=== PATIENT | female | born 1935 | race Caucasian/White ===

== ENCOUNTER 2017-10-15 13:41 | Inpatient (IN) ==
--- NOTE | 2017-10-15 14:43 | XRay Report ---
INDICATION: Dyspnea. Weakness, fever, bilateral leg swelling TECHNIQUE: PA and lateral upright chest x-ray COMPARISON: 10/05/2017, 10/01/2017, 01/22/2017 FINDINGS: Previous median sternotomy. There is mild cardiomegaly, unchanged. Pulmonary vascularity is prominent in the upper lobes consistent with mild pulmonary congestion. No evidence for pulmonary edema. No focal pulmonary parenchymal consolidation. No parenchymal mass. No pleural fluid. No acute abnormality or significant interval change IMPRESSION: 1. Mild cardiomegaly and pulmonary congestion 2. Pulmonary edema. No focal parenchymal infiltrate. 3. No interval change since 10/05/2017 Interpreted and Authenticated by: Ross Wu 10/15/17
--- NOTE | 2017-10-15 14:51 | Emergency Department Note ---
General Adult HPI - General Chief complaint: Fever Stated complaint: Fever, weakness, neck pain Time Seen by Provider: 10/15/17 14:20 Source: patient Mode of arrival: ambulatory Limitations: no limitations - History of Present Illness HPI Narrative: 82-year-old female presents with multiple complaints. She is describing body aches all over including her head, neck, shoulders, legs, and her intermittent achy type feelings. She also has had a fever of 102. Onset a couple of days ago. Positive nausea and diarrhea for the last couple of days. No vomiting. States she was discharged from the hospital about a week ago for acute renal failure. States she did better for couple days and her home health nurse noticed that her vital signs were abnormal today and she is little bit short of breath so they wanted her to be evaluated in the ER. Denies abdominal pain or back pain. No dysuria or frequency. She did have a recent UTI. Associated symptoms: Reports: cough, fever/chills, headaches, loss of appetite, malaise, nausea/vomiting. Denies: confusion, chest pain, diaphoresis, rash, syncope, weakness - Related Data Previous Rx's Medication Instructions Recorded Cephalexin [Keflex] 500 mg PO QID #40 cap 10/07/17 Cholestyramine/Aspartame [Questran 4 gm PO BID@0700,1999 #60 powd.pack 10/07/17 Light] Allergies Allergy/AdvReac Type Severity Reaction Status Date / Time Amoxicillin Allergy Severe Anaphylaxis Verified 10/15/17 13:46 nitrofurantoin Allergy Severe Anaphylaxis Verified 10/15/17 13:46 iodine Allergy Intermediate Rash Verified 10/15/17 13:46 butalbital [From Fioricet] Allergy Unknown Rash Verified 10/15/17 13:46 caffeine [From Fioricet] Allergy Unknown Rash Verified 10/15/17 13:46 amitriptyline AdvReac Mild Bad Verified 10/15/17 13:46 dreams/ space out sertraline [From Zoloft] AdvReac Mild Nightmare Verified 10/15/17 13:46 Review of Systems All systems ED: reviewed and negative except as stated. Past Medical History - Past Medical History [facility] Narrative: Medical History (Last Reviewed 04/30/17 @ 12:54 by Ross Sargent DO) Systolic congestive heart failure (Chronic) Multiple falls (Chronic) Acute bronchitis (Chronic) Cough (Chronic) Peripheral neuropathy (Chronic) Anemia, unspecified (Chronic) Lupus erythematosus (Chronic) Allergic conjunctivitis (Chronic) Syncope and collapse (Chronic) Encounter for long-term (current) use of other medications (Chronic) Primary open angle glaucoma (Chronic) Pre-excitation syndrome (Chronic) Irritable bowel syndrome (Chronic) Unspecified contact dermatitis, unspecified cause (Chronic) Unspecified osteoarthritis, unspecified site (Chronic) Polyneuropathy (Chronic) 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) Gastro-esophageal reflux disease without esophagitis (Chronic) Epigastric pain (Chronic) Cardiomegaly (Chronic) Frequency of micturition (Chronic) Abnormal weight loss (Chronic) Hyperlipidemia (Chronic) Renal osteodystrophy (Chronic) Vitamin D deficiency (Chronic) Anemia in chronic kidney disease (Chronic) Hypertension, essential (Chronic) Major depressive disorder, single episode (Chronic) Anxiety state (Chronic) Diarrhea (Chronic) Chronic kidney disease, stage 3 (Chronic) Kidney problem (Chronic) History of tobacco use (Chronic) Neuropathy (Chronic) Restless leg (Chronic) Fibromyalgia (Chronic) Renal failure (Chronic) Migraines (Chronic) Lupus (Chronic) Joint pain (Chronic) Insomnia (Chronic) WPW (Kaeus-Smonelssm-Cdvwu syndrome) (Chronic) Gallbladder problem (Chronic) Daytime sleepiness (Chronic) Muscle pain (Chronic) Skin cancer (Chronic) Arthritis (Chronic) Anxiety (Chronic) Acid reflux (Chronic) Past Surgical History (Last Reviewed 04/30/17 @ 12:54 by Ross Sargent DO) H/O colonoscopy (Chronic) History of cholecystectomy (Chronic) History of herniorrhaphy (Chronic) History of partial hysterectomy (Chronic) History of right knee joint replacement (Chronic) Hx of appendectomy (Chronic) S/P complete hysterectomy (Chronic) - Social History smoking status: Never smoker Alcohol use: Reports: None Drug use: Reports: none Physical Exam Limitations: no limitations General appearance: alert, in no apparent distress Head: atraumatic, normocephalic, normal inspection Eye: Present: normal appearance. Absent: conjunctival injection ENT: normal exam, normal oropharynx, mucous membranes moist, TM's normal bilaterally, normal external ear exam Neck: Present: normal inspection, trachea midline. Absent: tenderness, lymphadenopathy Chest: Present: normal inspection, symmetric chest wall rise Respiratory: Present: normal lung sounds bilaterally. Absent: respiratory distress, wheezes, accessory muscle use Cardiovascular: Present: regular rate, normal heart sounds Abdominal: Present: soft, normal bowel sounds. Absent: tenderness, mass Extremities: Present: normal inspection, normal capillary refill, pedal edema (1 + bialt). Absent: tenderness Neurological: Present: alert, oriented X3 Psychiatric: Present: normal affect, normal mood Skin: Present: warm, dry, intact, normal color Course Vital Signs Temperature 99.4 F H 10/15/17 13:41 Pulse Rate 80 10/15/17 13:41 Respiratory Rate 28 H 10/15/17 13:41 Blood Pressure 169/73 10/15/17 13:41 Pulse Oximetry (%) 99 10/15/17 13:41 Temperature 101.3 F H 10/15/17 16:49 Pulse Rate 80 10/15/17 16:49 Respiratory Rate 28 H 10/15/17 13:41 Blood Pressure 192/124 10/15/17 17:16 Pulse Oximetry (%) 100 10/15/17 16:49 Medical Decision Making - Lab Data Lab results reviewed: Yes I reviewed the patient's lab results. Result diagrams: 10/15/17 14:20 10/15/17 14:20 Lab Results 10/15/17 10/15/17 10/15/17 Range/Units 14:20 14:20 14:28 WBC 7.6 (4.5-11.0) K/mcL RBC 3.63 L (4.00-5.20) M/mcL Hgb 10.5 L (12.0-15.0) g/dL Hct 31.5 L (36.0-48.0) % POC Hct 31.0 L (36.0-48.0) % MCV 86.7 (80.0-100.0) fL MCH 29.0 (26.0-34.0) pg MCHC 33.4 (31.0-36.0) g/dL RDW 16.4 H (11.5-14.5) % Plt Count 277 (140-440) K/mcL MPV 8.5 (7.4-10.4) fL Gran % 65.7 (38.0-78.0) % Lymph % (Auto) 16.6 (15.5-49.0) % [place] % (Auto) 15.0 H (1.0-12.0) % Eos % (Auto) 2.4 (0.0-7.0) % Baso % (Auto) 0.3 (0.0-2.0) % Gran # 5.0 (1.8-8.0) K/mcL Lymph # (Auto) 1.3 L (1.5-4.8) K/mcL [place] # (Auto) 1.1 H (0.1-0.9) K/mcL Eos # (Auto) 0.2 (0.0-0.7) K/mcL Baso # (Auto) 0 (0.0-0.3) K/mcL POC Sodium 140 (133-145) mmol/L Sodium 137 (133-145) mmol/L POC Potassium 3.6 (3.3-5.1) mmol/L Potassium 3.7 (3.3-5.1) mmol/L POC Chloride 103 (96-108) mmol/L Chloride 101 (96-108) mmol/L Carbon Dioxide 23 (22-30) mmol/L POC Total CO2 23 (22-30) mmol/L Anion Gap 13.0 (8-16) POC BUN 9 (8-23) mg/dl BUN 9 (8-23) mg/dl Creatinine 1.1 (0.6-1.1) mg/dl POC Creatinine 1.1 (0.6-1.1) mg/dl GFR Calculation 47 Glucose 120 H (70-105) mg/dL POC Glucose 120 H (70-105) mg/dL Calcium 8.4 L (8.6-10.4) mg/dl POC WB Ioniz Calcium 1.17 (1.16-1.32) mmol/L Total Bilirubin 0.3 (0.0-1.0) mg/dL AST 21 (0-37) U/l ALT 12 (0-40) U/l Alkaline Phosphatase 109 (39-117) U/L NT-Pro-B Natriuret Pep 4524.0 H (0-450) pg/ml Total Protein 6.3 (5.9-8.4) gm/dL Albumin 3.2 (3.2-5.2) gm/dL Globulin 3.1 (2.2-3.7) gm/dL Albumin/Globulin Ratio 1.0 (1.0-2.3) Urine Color Yellow Urine Appearance Hazy Urine pH 5.0 (5.0-9.0) Ur Specific [place] 1.013 (1.000-1.035) Urine Protein 30 A (NEG) mg/dL Urine Glucose (UA) Negative (NEG) mg/dL Urine Ketones Neg (NEG) mg/dL Urine Occult Blood 0.03 A (<0.03) mg/dL Urine Nitrate Neg (NEG) Urine Bilirubin Neg (NEG) mg/dL Urine Urobilinogen Neg (NEG) mg/dL Ur Leukocyte Esterase 75 A (NEG) /uL Urine RBC 2 H (0-1) /hpf Urine WBC 15 H (0-4) /hpf Ur Squamous Epith Cells 8 H (0-4) /hpf Urine Bacteria Few A (0) /hpf Hyaline Casts 1 (0-2) /lpf Urine Mucus Few (0) /hpf Ur Culture Indicated? No - Radiology Data Radiology results reviewed: Yes I reviewed the patient's radiology results. Disposition Pt seen by RESTRICTIVE PREPARATION OPERATOR/PA only: Yes Clinical Impression: Urinary tract infection, Fever, Pulmonary congestion Disposition: Xfer As Inpt ([facility]) Condition: Fair Referrals: Ross Sargent DO [Primary Care Provider] -
[2017-10-15 14:54] LABS: Basophils # (Auto) 0 K/mcL (0.0-0.3); Basophils % (Auto) 0.3 % (0.0-2.0); Eosinophils # (Auto) 0.2 K/mcL (0.0-0.7); Eosinophils % (Auto) 2.4 % (0.0-7.0); Granulocytes % (Auto) 65.7 % (38.0-78.0); Lymphocytes # (Auto) 1.3 K/mcL (1.5-4.8); Lymphocytes % (Auto) 16.6 % (15.5-49.0); Mean Cell Volume 86.7 fL (80.0-100.0); Mean Corpuscular HGB Conc 33.4 g/dL (31.0-36.0); Monocytes # (Auto) 1.1 K/mcL (0.1-0.9); Platelet Count 277 K/mcL (140-440); RBC 3.63 M/mcL (4.00-5.20); Red Cell Distribution Width 16.4 % (11.5-14.5)
[2017-10-15 15:13] LABS: ALT/SGPT 12 U/l (0-40); Albumin 3.2 gm/dL (3.2-5.2); Alkaline Phosphatase 109 U/L (39-117); Blood Urea Nitrogen 9 mg/dl (8-23)
[2017-10-15 15:27] LABS: Appearance,Urine HAZY; Bacteria,Urine FEW /hpf (0); Bilirubin,Urine NEG (NEG); Color,Urine YELLOW; Glucose,Urine (UA) NEGATIVE (NEG); Leukocyte Esterase,Urine 75 /uL (NEG); Mucus,Urine FEW /hpf (0); Protein,Urine 30 mg/dL (NEG); Specific Gravity,Urine 1.013 (1.000-1.035); Urine Blood 0.03 mg/dL (<0.03); Urine Hyaline Cast 1 /lpf (0-2); Urine RBC 2 /hpf (0-1); Urine Squamous Epithelial Cell 8 /hpf (0-4); Urine WBC 15 /hpf (0-4); Urobilinogen,Urine NEG (NEG)
[2017-10-15] MEDS ORDERED: ACETAMINOPHEN 325 MG TABLET PO ONE (16:26)
[2017-10-15] MEDS ORDERED: CIPROFLOXACIN 400 MG/200 ML BAG IV ONE (16:52)
--- NOTE | 2017-10-15 19:20 | Cat Scan Report ---
CLINICAL INFORMATION: Fever. Nausea and vomiting. Abdominal pain. COMPARISON: CT scan dated 09/24/2017 TECHNIQUE: Axial images were obtained through the abdomen and pelvis. Sagittally and coronally reformatted images. FINDINGS: Small left pleural effusion is new since previous examination. Lung bases are otherwise negative. No pericardial effusion. There is a small hiatal hernia. Previous examination demonstrated perinephric stranding. This is almost completely resolved. There is no hydronephrosis. No detectable mass on this noncontrast enhanced examination. No renal calculi. No hydroureter. No bladder stone. Liver is negative to the limits of noncontrast enhanced examination. Liver contour is smooth. There are surgical clips in the gallbladder fossa. No dilated bile ducts No splenomegaly. Pancreas is negative. No peripancreatic abnormality. Adrenal glands are prominent without discrete nodule. Uterus is not identified. No adnexal mass. There is an anastomotic suture line and a calcified mural abnormality within the rectum. A cyst is unchanged. There is sigmoid diverticulosis. No evidence for diverticulitis. No detectable colonic mass. No appendicitis. Is mild retroperitoneal adenopathy. There are multiple small lymph nodes. These are not enlarged but are more numerous than typical largest para-aortic node measures approximately 1.6 cm. This is to the left of the aorta. Overall appearance is unchanged. No mesenteric adenopathy. No lumbar compression fracture. Sacrum and pelvis are negative. No intra-abdominal abscess. No pneumoperitoneum. No biliary or portal venous gas. No pneumatosis. IMPRESSION: 1. Previously described perinephric stranding is no longer present. There is no hydronephrosis. No hydroureter. No renal calculi. 2. Mild para-aortic adenopathy, unchanged. 3. No intra-abdominal abscess. 4. Small left pleural effusion is new since 09/24/2017. 5. Small hiatal hernia. The exam was performed using radiation dose optimization techniques including, but not limited to, automated exposure control, adjustment of the mA and/or kV according to patient size and use of iterative reconstruction technique. Interpreted and Authenticated by: Ross Wu 10/15/17
--- NOTE | 2017-10-15 19:25 | Internal Med History&Physical ---
Medical - H&P: [facility] Patient information: Note initiated : 10/15/17 at 7:21 pm Service Date, if different from initiated Date: [] Patient: Maxi Encarnacion a 82 y/o F admitted on for Fever, weakness, neck pain. Chief Complaint: [] History of present illness: Ms. Encarnacion is a 82 year old F Who was discharged from the hospital little over week ago for acute renal failure, UTI, sepsis, microscopic colitis. She presents back today for fever, she has had some body aches, diarrhea which was worse last Sunday but that has improved some. She has no crampy abdominal pain with bloating she has chronic shortness of breath and coughing. In the ER she was noted to have a fever of 102 denies any dysuria no productive cough. There was some report of some shortness of breath but when speaking with her she states this is chronic although an ER BNP was elevated above normal. Chest x-ray some of the past with pulmonary congestion Review of systems: Review of Systems: Complains of body aches fever chills diarrhea weakness crampy abdominal pain. denies headache/vomiting/chest pain, has chronic cough and dyspnea. Medical - H&P: [facility] Medical history: Medical History (Last Reviewed 04/30/17 @ 12:54 by Ross Sargent DO) Systolic congestive heart failure (Chronic) Multiple falls (Chronic) Acute bronchitis (Chronic) Cough (Chronic) Peripheral neuropathy (Chronic) Anemia, unspecified (Chronic) Lupus erythematosus (Chronic) Allergic conjunctivitis (Chronic) Syncope and collapse (Chronic) Encounter for long-term (current) use of other medications (Chronic) Primary open angle glaucoma (Chronic) Pre-excitation syndrome (Chronic) Irritable bowel syndrome (Chronic) Unspecified contact dermatitis, unspecified cause (Chronic) Unspecified osteoarthritis, unspecified site (Chronic) Polyneuropathy (Chronic) 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) Gastro-esophageal reflux disease without esophagitis (Chronic) Epigastric pain (Chronic) Cardiomegaly (Chronic) Frequency of micturition (Chronic) Abnormal weight loss (Chronic) Hyperlipidemia (Chronic) Renal osteodystrophy (Chronic) Vitamin D deficiency (Chronic) Anemia in chronic kidney disease (Chronic) Hypertension, essential (Chronic) Major depressive disorder, single episode (Chronic) Anxiety state (Chronic) Diarrhea (Chronic) Chronic kidney disease, stage 3 (Chronic) Kidney problem (Chronic) History of tobacco use (Chronic) Neuropathy (Chronic) Restless leg (Chronic) Fibromyalgia (Chronic) Renal failure (Chronic) Migraines (Chronic) Lupus (Chronic) Joint pain (Chronic) Insomnia (Chronic) WPW (Zwoon-Oknllrguq-Okigv syndrome) (Chronic) Gallbladder problem (Chronic) Daytime sleepiness (Chronic) Muscle pain (Chronic) Skin cancer (Chronic) Arthritis (Chronic) Anxiety (Chronic) Acid reflux (Chronic) Past Surgical History (Last Reviewed 04/30/17 @ 12:54 by Ross Sargent DO) H/O colonoscopy (Chronic) History of cholecystectomy (Chronic) History of herniorrhaphy (Chronic) History of partial hysterectomy (Chronic) History of right knee joint replacement (Chronic) Hx of appendectomy (Chronic) S/P complete hysterectomy (Chronic) Family History (Last Reviewed 04/30/17 @ 12:54 by Ross Sargent DO) Mother Arthritis Uterine cancer Dementia Father Arthritis Grandmother Arthritis Grandmother Arthritis Cancer Sister Lymphoma Migraine Grandfather Heart attack Stroke Social History (Last Updated 09/04/17 @ 11:17 by Ross Sargent DO) Patient denies alcohol or tobacco and uses a cane lives with her Functional capacity: uses cane/walker Medical - H&P: Meds Home Medications Medication Instructions Recorded Confirmed Type Cephalexin [Keflex] 500 mg PO QID #40 cap 10/07/17 10/15/17 Rx Cholestyramine/Aspartame [Questran 4 gm PO BID@0700,1999 #60 powd.pack 10/07/17 10/15/17 Rx Light] Allergies Allergy/AdvReac Type Severity Reaction Status Date / Time Amoxicillin Allergy Severe Anaphylaxis Verified 10/15/17 13:46 nitrofurantoin Allergy Severe Anaphylaxis Verified 10/15/17 13:46 iodine Allergy Intermediate Rash Verified 10/15/17 13:46 butalbital [From Fioricet] Allergy Unknown Rash Verified 10/15/17 13:46 caffeine [From Fioricet] Allergy Unknown Rash Verified 10/15/17 13:46 amitriptyline AdvReac Mild Bad Verified 10/15/17 13:46 dreams/ space out sertraline [From Zoloft] AdvReac Mild Nightmare Verified 10/15/17 13:46 Medical - H&P: Exam - Constitutional Vitals: Temp Pulse Resp BP Pulse Ox 99.7 F H 80 28 H 137/123 100 10/15/17 18:12 10/15/17 16:49 10/15/17 13:41 10/15/17 18:02 10/15/17 16:49 Exam: General: Alert, Awake, No acute Distress HEENT: Normocephalic atraumatic, EOMI, mild JVD CV: RRR, No murmurs, normal s1/s2 Pulm: Clear b/l, no wheezing/rhonchi/rales Abd: soft, nontender, +BS x4 Ext: no clubbing/cyanosis, 1+ bilateral lower extremity edema Neuro: Alert, no focal deficits, moves all extremities Skin: warm/dry Medical - H&P: Reslt - Labs CBC & Chem 7: 10/15/17 14:20 10/15/17 14:20 Labs: Short CBC 10/15/17 Range/Units 14:20 WBC 7.6 (4.5-11.0) K/mcL Hgb 10.5 L (12.0-15.0) g/dL Hct 31.5 L (36.0-48.0) % Plt Count 277 (140-440) K/mcL BMP 10/15/17 14:20 Sodium 137 Potassium 3.7 Chloride 101 Carbon Dioxide 23 BUN 9 Creatinine 1.1 Glucose 120 H Calcium 8.4 L Liver Function 10/15/17 Range/Units 14:20 Total Bilirubin 0.3 (0.0-1.0) mg/dL AST 21 (0-37) U/l ALT 12 (0-40) U/l Alkaline Phosphatase 109 (39-117) U/L Albumin 3.2 (3.2-5.2) gm/dL Urine 10/15/17 Range/Units 14:28 Urine Color Yellow Urine Appearance Hazy Urine pH 5.0 (5.0-9.0) Ur Specific [place] 1.013 (1.000-1.035) Urine Protein 30 A (NEG) mg/dL Urine Glucose (UA) Negative (NEG) mg/dL Medical - H&P: A/P - Narrative A/P Narrative: A: *UTI: *Sepsis: Secondary above *Mild decompensated diastolic heart failure, acute on chronic *Diarrhea for microscopic colitis *Peripheral neuropathy *Depression *Fibromyalgia/lupus *Hypertension *GERD *CKD stage III: Follows with Dr. Matos *Chronic anemia P: -IV Levaquin -Pending blood and urine cultures -Monitor I's and O's and daily weights -IV Lasix tonight -Imodium -Continue home medications but hold cholestyramine at this time -Stool studies including C. difficile pending -ppx: Heparin
[2017-10-15 19:27] LABS: Eosinophils % (Manual) 2 % (0-7); Lymphocytes % 18 % (15-49); Monocytes % (Manual) 14 % (1-12); Platelet Estimate NORMAL (NORMAL); RBC Morphology NORMAL (NORMAL); Segmented Neutrophils % 66 % (38-78)
[2017-10-15] MEDS ORDERED: ACETAMINOPHEN 325 MG TABLET PO PRN (21:05)
[2017-10-15] MEDS ORDERED: FUROSEMIDE 40 MG/4 ML VIAL IV ONE (21:05)
[2017-10-15] MEDS ORDERED: ENALAPRILAT 1.25 MG/ML VIAL IV PRN (21:05)
[2017-10-15] MEDS ORDERED: LOPERAMIDE 2 MG CAPSULE PO PRN (21:05)
[2017-10-15] MEDS ORDERED: LEVOFLOXACIN 500 MG/100 ML BAG IV SCH (21:05)
[2017-10-15] MEDS ORDERED: LABETALOL 5 MG/ML ML IV PRN (22:23)
[2017-10-15] MEDS: HEPARIN 5,000 UNIT/ML VIAL SQ SCH (22:50)
[2017-10-15] MEDS: 0.9 % SODIUM CHLORIDE 10 ML SYRINGE IV SCH (22:52)
[2017-10-16 05:17] LABS: Mean Cell Volume 86.9 fL (80.0-100.0); Mean Corpuscular Hemoglobin 28.7 pg (26.0-34.0); Platelet Count 271 K/mcL (140-440); RBC 3.83 M/mcL (4.00-5.20); Red Cell Distribution Width 16.3 % (11.5-14.5)
[2017-10-16 05:48] LABS: ALT/SGPT 13 U/l (0-40); Albumin 3.3 gm/dL (3.2-5.2); Albumin/Globulin Ratio 0.9 (1.0-2.3); Alkaline Phosphatase 121 U/L (39-117); Bilirubin,Direct < 0.2 mg/dL (0.0-0.3); Blood Urea Nitrogen 12 mg/dl (8-23); Gamma Glutamyl Transpeptidase 44 U/L (5-36); Uric Acid 4.4 mg/dL (2.5-8.0)
[2017-10-16] MEDS: 0.9 % SODIUM CHLORIDE 10 ML SYRINGE IV SCH ×3 (05:52→20:16)
[2017-10-16 06:41] LABS: Anisocytosis 1+ (NONE SEEN); Band Neutrophils % 1 % (0-10); Basophils % (Manual) 2 % (0-2); Lymphocytes % 28 % (15-49); Monocytes % (Manual) 13 % (1-12); Platelet Estimate NORMAL (NORMAL); RBC Morphology ABNORM (NORMAL); Segmented Neutrophils % 56 % (38-78)
--- NOTE | 2017-10-16 07:24 | Internal Med Progress Note ---
Medical - PN: Subj Patient information: Note initiated : 10/16/17 at 7:19 am Service Date, if different from initiated Date: [] Patient: Maxi Encarnacion a 82 y/o F admitted on 10/15/17 for Fever, weakness, neck pain. Chief Complaint: [] Interval history: Ms. Encarnacion is a 82 year old F Who was discharged from the hospital little over week ago for acute renal failure, UTI, sepsis, microscopic colitis. She presents back today for fever, she has had some body aches, diarrhea which was worse last Sunday but that has improved some. She has no crampy abdominal pain with bloating she has chronic shortness of breath and coughing. In the ER she was noted to have a fever of 102 denies any dysuria no productive cough. There was some report of some shortness of breath but when speaking with her she states this is chronic although an ER BNP was elevated above normal. Chest x-ray some pulmonary congestion 10/16 feeling better overnight. No fevers this morning. No episodes of diarrhea since admission. Had mild headache but has improved. No nausea vomiting abdominal pain. No coughing or shortness of breath. Denies chest pain. - Constitutional Vitals: Vital Signs Temp Pulse Resp BP Pulse Ox 98.5 F 89 20 152/66 96 10/16/17 05:18 10/16/17 03:54 10/16/17 03:54 10/16/17 03:54 10/16/17 03:54 Period Temp Pulse Resp BP Sys/Chicas Pulse Ox Last 24 Hr 98.3 F-102.3 F 56-89 20-28 126-192/62-124 96-100 Intake and Output 10/15/17 10/16/17 10/16/17 21:59 05:59 13:59 Intake Total 200 / 200 250 / 250 Output Total 150 / 150 Balance 50 / 50 250 / 250 Weight 78.789 kg Intake & Output: Intake & Output 10/15/17 10/16/17 10/16/17 21:59 05:59 13:59 Intake Total 200 / 200 250 / 250 Output Total 150 / 150 Balance 50 / 50 250 / 250 Weight 78.789 kg Intake: IV 200 / 200 100 / 100 Oral 150 / 150 Output: Void Amount 150 / 150 Other: Urine Appearance Clear Urine Color Pale Urine Odor Strong Exam: General: Alert, Awake, No acute Distress HEENT: Normocephalic atraumatic, EOMI, mild jvd CV: RRR, No murmurs, normal s1/s2 Pulm: Clear b/l, no wheezing/rhonchi/rales Abd: soft, nontender, +BS x4 Ext: no clubbing/cyanosis, 1+ bilateral lower extremity edema Neuro: Alert, no focal deficits, moves all extremities Skin: warm/dry Medical - PN: Obj Da - Labs CBC & Chem 7: 10/16/17 04:09 10/16/17 04:09 Labs: Abnormal Lab Results 10/16/17 10/16/17 10/15/17 04:09 04:09 17:42 RBC 3.83 L Hgb 11.0 L Hct 33.3 L POC Hct RDW 16.3 H [place] % (Auto) Lymph # (Auto) [place] # (Auto) Monocytes % (Manual) 13 H 14 H RBC Morphology Abnorm A Anisocytosis 1+ A RBC Fragments Rare A Creatinine 1.3 H Glucose POC Glucose Calcium Phosphorus 2.5 L GGT 44 H Alkaline Phosphatase 121 H Lactate Dehydrogenase 286 H NT-Pro-B Natriuret Pep Albumin/Globulin Ratio 0.9 L Urine Protein Urine Occult Blood Ur Leukocyte Esterase Urine RBC Urine WBC Ur Squamous Epith Cells Urine Bacteria 10/15/17 10/15/17 10/15/17 14:28 14:20 14:20 RBC 3.63 L Hgb 10.5 L Hct 31.5 L POC Hct 31.0 L RDW 16.4 H [place] % (Auto) 15.0 H Lymph # (Auto) 1.3 L [place] # (Auto) 1.1 H Monocytes % (Manual) RBC Morphology Anisocytosis RBC Fragments Creatinine Glucose 120 H POC Glucose 120 H Calcium 8.4 L Phosphorus GGT Alkaline Phosphatase Lactate Dehydrogenase NT-Pro-B Natriuret Pep 4524.0 H Albumin/Globulin Ratio Urine Protein 30 A Urine Occult Blood 0.03 A Ur Leukocyte Esterase 75 A Urine RBC 2 H Urine WBC 15 H Ur Squamous Epith Cells 8 H Urine Bacteria Few A Meds: Medications Acetaminophen (Tylenol) 650 mg PO Q6HP PRN PRN Reason: PAIN/FEVER > 101 Last Admin: 10/16/17 04:33 Dose: 650 mg Enalaprilat (Vasotec) 1.25 mg IV Q4HP PRN PRN Reason: Hypertension Heparin Sodium (Porcine) (Heparin) 5,000 unit SQ Q12 PENDING SALE TO [facility] Last Admin: 10/15/17 22:50 Dose: 5,000 unit Levofloxacin (Levaquin) 500 mg in 100 mls @ 100 mls/hr IV Q24H PENDING SALE TO [facility] Last Infusion: 10/16/17 00:11 Dose: Infused Labetalol HCl (Trandate) 10 mg IV Q2HP PRN PRN Reason: sbp>150 Loperamide HCl (Imodium) 2 mg PO PRN PRN PRN Reason: Diarrhea Sodium Chloride (Saline Flush) 10 ml IV Q8 PENDING SALE TO [facility] Last Admin: 10/16/17 05:52 Dose: 10 ml Medical - PN: A/P - Time Spent With Patient Total time spent is greater than 50% in coordination of care (as documented) at patient's floor/unit and/or counseling patient: - Narrative A/P Narrative: A: *UTI: *Sepsis: Secondary above -fever improving *Mild decompensated diastolic heart failure, acute on chronic *Diarrhea from microscopic colitis *Peripheral neuropathy *Depression *Fibromyalgia/lupus *Hypertension *GERD *CKD stage III: Follows with Dr. Matos *Chronic anemia P: -IV Levaquin -Pending blood and urine cultures -Monitor I's and O's and daily weights -s/p IV Lasix, cont lasix -Imodium -Continue home medications but hold cholestyramine at this time -Stool studies including C. difficile pending -f/u with GI outpt, has appt -ppx: Heparin Medical - PN: Qual - VTE Deep Vein Thrombosis/Pulmonary Embolism Present on Admission: No
[2017-10-16] MEDS: HEPARIN 5,000 UNIT/ML VIAL SQ SCH ×2 (08:11→20:16)
[2017-10-16] MEDS ORDERED: BENZOCAINE/MENTHOL 1 LOZENGE PO PRN ×2 (09:18→14:11)
[2017-10-16] MEDS ORDERED: FUROSEMIDE 20 MG/2 ML VIAL IV ONE (09:19)
[2017-10-16] MEDS ORDERED: ACETAMINOPHEN 325 MG TABLET PO PRN (14:11)
[2017-10-16] MEDS ORDERED: LOPERAMIDE 2 MG CAPSULE PO PRN (14:11)
[2017-10-16] MEDS ORDERED: LABETALOL 5 MG/ML ML IV PRN (14:11)
[2017-10-16] MEDS ORDERED: ENALAPRILAT 1.25 MG/ML VIAL IV PRN ×2 (14:11→14:49)
[2017-10-16] MEDS ORDERED: LEVOFLOXACIN 500 MG/100 ML BAG IV SCH (15:00)
[2017-10-17 05:53] LABS: Blood Urea Nitrogen 12 mg/dl (8-23)
[2017-10-17] MEDS: 0.9 % SODIUM CHLORIDE 10 ML SYRINGE IV SCH (05:57)
--- NOTE | 2017-10-17 07:32 | Internal Med Progress Note ---
Medical - PN: Subj Patient information: Note initiated : 10/17/17 at 7:24 am Service Date, if different from initiated Date: [] Patient: Maxi Encarnacion a 82 y/o F admitted on 10/15/17 for Fever, Weakness, Neck Pain/UTI, Sepsis. Chief Complaint: [] Interval history: Ms. Encarnacion is a 82 year old F Who was discharged from the hospital little over week ago for acute renal failure, UTI, sepsis, microscopic colitis. She presents back today for fever, she has had some body aches, diarrhea which was worse last Sunday but that has improved some. She has no crampy abdominal pain with bloating she has chronic shortness of breath and coughing. In the ER she was noted to have a fever of 102 denies any dysuria no productive cough. There was some report of some shortness of breath but when speaking with her she states this is chronic although an ER BNP was elevated above normal. Chest x-ray some pulmonary congestion 10/16 10/17 - Constitutional Vitals: Vital Signs Temp Pulse Resp BP Pulse Ox 98.4 F 74 18 127/65 97 10/17/17 04:39 10/17/17 04:39 10/16/17 20:00 10/17/17 04:39 10/17/17 04:39 Period Temp Pulse Resp BP Sys/Chicas Pulse Ox Last 24 Hr 97.1 F-99.5 F 66-81 16-18 127-153/65-85 97-100 Intake and Output 10/16/17 10/17/17 10/17/17 21:59 05:59 13:59 Intake Total 720 / 720 360 / 360 Output Total 650 / 650 925 / 925 125 / 125 Balance 70 / 70 -565 / -565 -125 / -125 Weight 75.387 kg Intake & Output: Intake & Output 10/16/17 10/17/17 10/17/17 21:59 05:59 13:59 Intake Total 720 / 720 360 / 360 Output Total 650 / 650 925 / 925 125 / 125 Balance 70 / 70 -565 / -565 -125 / -125 Weight 75.387 kg Intake: IV 100 / 100 Oral 620 / 620 360 / 360 Output: Void Amount 650 / 650 925 / 925 125 / 125 Other: Urine Appearance Clear Clear Urine Color Bright Yellow Pale Urine Odor Normal Normal # Voids 1 1 Exam: General: Alert, Awake, No acute Distress HEENT: Normocephalic atraumatic, EOMI, mild jvd CV: RRR, No murmurs, normal s1/s2 Pulm: Clear b/l, no wheezing/rhonchi/rales Abd: soft, nontender, +BS x4 Ext: no clubbing/cyanosis, 1+ bilateral lower extremity edema Neuro: Alert, no focal deficits, moves all extremities Skin: warm/dry Medical - PN: Obj Da - Labs CBC & Chem 7: 10/16/17 04:09 10/17/17 03:50 Labs: Abnormal Lab Results 10/17/17 10/17/17 10/16/17 03:50 03:50 04:09 RBC Hgb Hct POC Hct RDW Avery % (Auto) Lymph # (Auto) Avery # (Auto) Monocytes % (Manual) RBC Morphology Anisocytosis RBC Fragments Creatinine 1.2 H 1.3 H Glucose 109 H POC Glucose Calcium 8.5 L Phosphorus 2.5 L GGT 44 H Alkaline Phosphatase 121 H Lactate Dehydrogenase 286 H NT-Pro-B Natriuret Pep 2336.0 H Albumin/Globulin Ratio 0.9 L Urine Protein Urine Occult Blood Ur Leukocyte Esterase Urine RBC Urine WBC Ur Squamous Epith Cells Urine Bacteria 10/16/17 10/15/17 10/15/17 04:09 17:42 14:28 RBC 3.83 L Hgb 11.0 L Hct 33.3 L POC Hct RDW 16.3 H Avery % (Auto) Lymph # (Auto) Avery # (Auto) Monocytes % (Manual) 13 H 14 H RBC Morphology Abnorm A Anisocytosis 1+ A RBC Fragments Rare A Creatinine Glucose POC Glucose Calcium Phosphorus GGT Alkaline Phosphatase Lactate Dehydrogenase NT-Pro-B Natriuret Pep Albumin/Globulin Ratio Urine Protein 30 A Urine Occult Blood 0.03 A Ur Leukocyte Esterase 75 A Urine RBC 2 H Urine WBC 15 H Ur Squamous Epith Cells 8 H Urine Bacteria Few A 10/15/17 10/15/17 14:20 14:20 RBC 3.63 L Hgb 10.5 L Hct 31.5 L POC Hct 31.0 L RDW 16.4 H Avery % (Auto) 15.0 H Lymph # (Auto) 1.3 L Avery # (Auto) 1.1 H Monocytes % (Manual) RBC Morphology Anisocytosis RBC Fragments Creatinine Glucose 120 H POC Glucose 120 H Calcium 8.4 L Phosphorus GGT Alkaline Phosphatase Lactate Dehydrogenase NT-Pro-B Natriuret Pep 4524.0 H Albumin/Globulin Ratio Urine Protein Urine Occult Blood Ur Leukocyte Esterase Urine RBC Urine WBC Ur Squamous Epith Cells Urine Bacteria Meds: Medications Acetaminophen (Tylenol) 650 mg PO Q6HP PRN PRN Reason: PAIN/FEVER > 101 Enalaprilat (Vasotec) 1.25 mg IV Q4HP PRN PRN Reason: Hypertension Heparin Sodium (Porcine) (Heparin) 5,000 unit SQ Q12 [facility] Last Admin: 10/16/17 20:16 Dose: 5,000 unit Levofloxacin (Levaquin) 500 mg in 100 mls @ 100 mls/hr IV Q24H [facility] Last Infusion: 10/16/17 16:15 Dose: Infused Labetalol HCl (Trandate) 10 mg IV Q2HP PRN PRN Reason: sbp>150 Loperamide HCl (Imodium) 2 mg PO PRN PRN PRN Reason: Diarrhea Sodium Chloride (Saline Flush) 10 ml IV Q8 [facility] Last Admin: 10/17/17 05:57 Dose: 10 ml Throat Lozenges (Cepacol) 1 lozenge PO PRN PRN PRN Reason: Sore Throat Medical - PN: A/P - Time Spent With Patient Total time spent is greater than 50% in coordination of care (as documented) at patient's floor/unit and/or counseling patient: - Narrative A/P Narrative: A: *UTI: UC no growth *Sepsis: Secondary above -afebrile now since *Mild decompensated diastolic heart failure, acute on chronic: improved -good diuresis *Diarrhea from microscopic colitis: improved *Peripheral neuropathy *Depression *Fibromyalgia/lupus *Hypertension *GERD *CKD stage III: Follows with Dr. Matos *Chronic anemia P: -IV Levaquin to PO -Monitor I's and O's and daily weights -s/p IV Lasix -Imodium -Continue home medications but hold cholestyramine at this time -unable to gather any stool samples -f/u with GI outpt, has appt -ppx: Heparin Medical - PN: Qual - VTE Deep Vein Thrombosis/Pulmonary Embolism Present on Admission: No
[2017-10-17] MEDS: HEPARIN 5,000 UNIT/ML VIAL SQ SCH (08:28)
[2017-10-17] MEDS ORDERED: LEVOFLOXACIN 500 MG TABLET PO SCH (09:00)
--- NOTE | 2017-10-17 10:02 | Discharge Summary ---
Medical - DS: Prov Patient information: Note initiated : 10/17/17 at 9:59 am Service Date, if different from initiated Date: [] Patient: Maxi Encarnacion a 82 y/o F admitted on 10/15/17 for Fever, Weakness, Neck Pain/UTI, Sepsis. Chief Complaint: [] Date of admission: 10/15/17 20:51 Discharge date: 10/17/17 Primary care physician: Ross Sargent Consults: 10/15/17 Consult to Physician [CONS] Stat Comment: Consulting Provider: Walter Lofton Reason For Exam: Physician to Consult Medical - DS: Meds - Discharge Medications Prescriptions: Levofloxacin [Levaquin] 250 mg PO DAILY #4 tab Active and Home Medications: Home Medications Cephalexin [Keflex] 500 mg PO QID #40 cap 10/07/17 [Rx Confirmed 10/15/17 Last Taken 10/14/17 18:00] Cholestyramine/Aspartame [Questran Light] 4 gm PO BID@0700,1999 #60 powd.pack [Rx Confirmed 10/15/17 Last Taken 10/15/17 07:00] Medical - DS: Hosp Hospital course: Mr. Encarnacion is a 82 year old F Who was discharged from the hospital little over week ago for acute renal failure, UTI, sepsis, microscopic colitis. She presents back today for fever, she has had some body aches, diarrhea which was worse last Sunday but that has improved some. She has no crampy abdominal pain with bloating she has chronic shortness of breath and coughing. In the ER she was noted to have a fever of 102 denies any dysuria no productive cough. There was some report of some shortness of breath but when speaking with her she states this is chronic although an ER BNP was elevated above normal. Chest x-ray some pulmonary congestion 10/16 feeling better overnight. No fevers this morning. No episodes of diarrhea since admission. Had mild headache but has improved. No nausea vomiting abdominal pain. No coughing or shortness of breath. Denies chest pain. 10/17 Feeling much better this morning desire to go home, patient stable and okay for discharge Discharge diagnosis: UTI sepsis diastolic heart failure - Time Spent with Patient Total time spent providing and/or coordinating discharge services: Greater than 30 minutes Medical - DS: Exam - Constitutional Vitals: Vital Signs Temp Pulse Pulse Resp BP BP Pulse Ox 10/17/17 08:34 98.8 F 72 18 138/90 98 10/17/17 04:39 98.4 F 74 127/65 97 10/17/17 00:24 99.5 F H 66 136/85 98 10/16/17 20:00 98.8 F 73 18 128/75 100 10/16/17 15:43 99.0 F 72 18 153/79 100 10/16/17 11:35 98.9 F 80 18 140/78 100 Intake and Output 10/16/17 10/17/17 10/17/17 21:59 05:59 13:59 Intake Total 720 / 720 360 / 360 300 / 300 Output Total 650 / 650 925 / 925 275 / 275 Balance 70 / 70 -565 / -565 25 / Intake: IV 100 / 100 Oral 620 / 620 360 / 360 300 / 300 Output: Void Amount 650 / 650 925 / 925 275 / 275 Other: Meal Breakfast Percent of Meal Consumed 100% Urine Appearance Clear Clear Urine Color Bright Yellow Pale Urine Odor Normal Normal # Voids 1 1 Weight 75.387 kg Medical - DS: Data Labs on day of discharge: Labs from last 24 hours 10/17/17 10/17/17 03:50 03:50 Sodium 141 Potassium 4.0 Chloride 104 Carbon Dioxide 25 Anion Gap 12.0 BUN 12 Creatinine 1.2 H GFR Calculation 43 Glucose 109 H Calcium 8.5 L NT-Pro-B Natriuret Pep 2336.0 H Preliminary micro results at discharge 10/15/17 18:20 Blood Culture - Preliminary Blood 10/15/17 18:25 Blood Culture - Preliminary Blood 10/15/17 14:43 Urine Culture - Preliminary Urine - Clean Void [facility] - DS: A/P - Patient/Caregiver Discharge Instructions Activity: increase activity as tolerated Diet: Regular Diet - Follow up Plan Follow up with: Ross Sargent DO [Primary Care Provider] - 10/25/17 11:30 am Violeta Murillo ARNP [Nurse Practitioner] - 10/17/17 2:30 pm ( Please check in at 2:15pm) Dirk Matos MD [Physician] - Disposition: Home Health Service Prognosis: Fair Rehab Potential: Fair Medical - DS: Qual - VTE Deep Vein Thrombosis/Pulmonary Embolism Present on Admission: No
== END 2017-10-17 10:40 | disposition home health service (06) | DRG 871 ==
LOC: ED 13:41 → ICU 20:50
PROVIDERS: ADMIT Internal Medicine; ATTEND Internal Medicine

== ENCOUNTER 2019-12-19 14:45 | Inpatient (IN) ==
[2019-12-19] MEDS ORDERED: 0.9 % SODIUM CHLORIDE 1,000 ML IV ONE ×2 (15:44→19:17)
--- NOTE | 2019-12-19 15:44 | Emergency Department Note ---
Altered Mental Status HPI General Chief Complaint: Altered Mental Status Stated Complaint: Altered Mental Status Time Seen by Provider: 12/19/19 15:07 Source: EMS Mode of arrival: EMS Limitations: no limitations and altered mental status History of Present Illness HPI Narrative: Narrative: 84-year-old Female with a history of dementia comes in for Altered mental status from [facility]. She is snoring right now and sleeping but I cannot arouse her. She is unable to give me any meaningful history or review of systems. correction reports no fever or trouble breathing just that they cannot arouse her. Her normal baseline is screaming and yelling- That is she is bedbound but she is quite verbal. She has multiple comorbidities and is on apixaban. She is a full code With limited interventions. History of A. fib on apixaban Related Data Home Medications Medication Instructions Recorded Confirmed acetaminophen [Tylenol] 650 mg PO Q8H PRN 09/17/19 12/19/19 divalproex [Depakote] 250 mg PO TID 09/17/19 12/19/19 docusate sodium [Colace] 100 mg PO PRN PRN 09/17/19 12/19/19 escitalopram oxalate 10 mg PO DAILY 09/17/19 12/19/19 lactase [Lactaid] 3,000 unit PO ONCE PRN 09/17/19 12/19/19 lorazepam 0.5 mg PO Q6HP PRN 09/17/19 12/19/19 gabapentin 200 mg PO QID 12/19/19 12/19/19 spironolactone 12.5 mg PO 3XW 12/19/19 12/19/19 triamcinolone acetonide 1 applic TOPICAL BID PRN 12/19/19 12/19/19 Previous Rx's Medication Instructions Recorded apixaban 2.5 mg tablet 2.5 mg PO BID #60 tab 04/23/19 metoprolol succinate 25 mg 25 mg PO QDAY #30 tab 04/23/19 tablet,extended release 24 hr hydrocodone 5 mg-acetaminophen 325 0.5 tab PO BID PRN #30 tab 05/23/19 mg tablet Allergies Allergy/AdvReac Type Severity Reaction Status Date / Time Amoxicillin Allergy Severe Anaphylaxis Verified 09/22/19 15:19 nitrofurantoin Allergy Severe Anaphylaxis Verified 09/22/19 15:19 butalbital [From Fioricet] Allergy Intermediate Rash Verified 09/22/19 15:19 iodine Allergy Intermediate Rash Verified 09/22/19 15:19 amitriptyline AdvReac Mild Bad Verified 09/22/19 15:19 dreams/ space out sertraline [From Zoloft] AdvReac Mild Nightmare Verified 09/22/19 15:19 Review of Systems ROS ROS Narrative: Narrative: All systems ED: reviewed and negative except as stated. [facility] Narrative Patient History Narrative: Narrative: Medical/Surgical/Family History All Active Problems (Updated 12/19/19 @ 21:59 by Ethan Soler MD) Dementia (Acute) Sepsis (Acute) Altered mental status (Acute) Acute renal failure (Acute) Acute renal failure superimposed on stage 3 chronic kidney disease (Acute) Hyperkalemia (Acute) Hyponatremia (Acute) Sepsis (Acute) UTI (urinary tract infection) (Acute) Fever (Acute) Pulmonary congestion (Acute) Opioid abuse (Acute) Weakness (Acute) Paroxysmal atrial fibrillation (Chronic) Multifocal atrial tachycardia (Chronic) Diastolic congestive heart failure (Chronic) Depression (Chronic) HTN (hypertension) (Chronic) Systolic congestive heart failure (Chronic) Multiple falls (Chronic) Acute bacterial rhinosinusitis (Acute) Pedal edema (Chronic) Chronic kidney disease, stage III (moderate) (Chronic) Atrophic vaginitis (Chronic) Candidiasis of vagina (Acute) Acute bronchitis (Chronic) Cough (Chronic) Peripheral neuropathy (Chronic) Anemia, unspecified (Chronic) Lupus erythematosus (Chronic) Allergic conjunctivitis (Chronic) Syncope and collapse (Chronic) Encounter for long-term (current) use of other medications (Chronic) Primary open angle glaucoma (Chronic) Pre-excitation syndrome (Chronic) Irritable bowel syndrome (Chronic) Unspecified contact dermatitis, unspecified cause (Chronic) Unspecified osteoarthritis, unspecified site (Chronic) Polyneuropathy (Chronic) 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) Gastro-esophageal reflux disease without esophagitis (Chronic) Epigastric pain (Chronic) Cardiomegaly (Chronic) Frequency of micturition (Chronic) Abnormal weight loss (Chronic) Hyperlipidemia (Chronic) Renal osteodystrophy (Chronic) Vitamin D deficiency (Chronic) Anemia in chronic kidney disease (Chronic) Hypertension, essential (Chronic) Major depressive disorder, single episode (Chronic) Anxiety state (Chronic) Diarrhea (Chronic) Chronic kidney disease, stage 3 (Chronic) Kidney problem (Chronic) History of tobacco use (Chronic) Neuropathy (Chronic) Restless leg (Chronic) Fibromyalgia (Chronic) Renal failure (Chronic) Migraines (Chronic) Lupus (Chronic) Joint pain (Chronic) Insomnia (Chronic) WPW (Chapd-Gdmfmnzrm-Czgsh syndrome) (Chronic) Gallbladder problem (Chronic) Daytime sleepiness (Chronic) Muscle pain (Chronic) Skin cancer (Chronic) Arthritis (Chronic) Anxiety (Chronic) Acid reflux (Chronic) Medical History Abnormal weight loss (Chronic) Acid reflux (Chronic) 2000 Acute bronchitis (Chronic) Allergic conjunctivitis (Chronic) Anemia in chronic kidney disease (Chronic) Anemia, unspecified (Chronic) Anxiety (Chronic) 1995 Anxiety state (Chronic) Arthritis (Chronic) Cardiomegaly (Chronic) Chronic kidney disease, stage 3 (Chronic) Cough (Chronic) Daytime sleepiness (Chronic) 1995 Diarrhea (Chronic) Discoid lupus erythematosus (Chronic) Encounter for long-term (current) use of other medications (Chronic) Epigastric pain (Chronic) Fibromyalgia (Chronic) 1985 Frequency of micturition (Chronic) Gallbladder problem (Chronic) Removed Gastro-esophageal reflux disease without esophagitis (Chronic) History of tobacco use (Chronic) Hyperlipidemia (Chronic) Hypertension, essential (Chronic) Insomnia (Chronic) Irritable bowel syndrome (Chronic) w/diarrhea Joint pain (Chronic) Kidney problem (Chronic) Lichen sclerosus et atrophicus (Chronic) Lupus (Chronic) 1995 Lupus erythematosus (Chronic) Major depressive disorder, single episode (Chronic) Migraines (Chronic) Multiple falls (Chronic) Muscle pain (Chronic) 1995 Neuropathy (Chronic) 2015 In feet Peripheral neuropathy (Chronic) Polyneuropathy (Chronic) Pre-excitation syndrome (Chronic) Primary open angle glaucoma (Chronic) Renal failure (Chronic) Renal osteodystrophy (Chronic) Restless leg (Chronic) 1965 Skin cancer (Chronic) Syncope and collapse (Chronic) Systolic congestive heart failure (Chronic) Unspecified contact dermatitis, unspecified cause (Chronic) Unspecified osteoarthritis, unspecified site (Chronic) Vitamin D deficiency (Chronic) WPW (Zttju-Qcustqyzs-Phytd syndrome) (Chronic) 1985 Surgery Surgical History H/O colonoscopy (Chronic) 2013 Dr. Kemp History of cholecystectomy (Chronic) 2005 History of coronary artery bypass graft (Acute) History of herniorrhaphy (Chronic) 2013 History of partial hysterectomy (Chronic) 1962 History of right knee joint replacement (Chronic) Hx of appendectomy (Chronic) 1964 S/P complete hysterectomy (Chronic) 1964 Family History Mother Arthritis Uterine cancer Dementia Father Arthritis Grandmother Arthritis Maternal Grandmother Arthritis Paternal Cancer Paternal Sister Lymphoma Migraine Grandfather Heart attack Maternal Stroke Maternal Social History Smoking Status: Former smoker Alcohol Intake Frequency: does not drink Substance Use: does not use Exam Narrative Narrative: Narrative: Thin female no acute distress not arousable but snoring quite loudly. I did pullback her eyelids and shine a light in her pupils which are reactive bilaterally and equal. Nursing staff reports that she did answer yes or no questions with a nod or shake of her head as appropriate- However she refused to fully wake up for them either. Again baseline dementia noted and that she is typically verbal. She did not respond to sternal rub either. Heart is regular rate and rhythm no murmur appreciated. Lungs are basically clear to auscultation with a few scattered rales. Abdomen is soft nontender nondistended. No peritoneal signs or guarding. No pedal edema. Normal +2 radial pulse. Neurologic exam shows as above somnolent but minimally responsive. Responses to nursing staff seem to be more appropriate with willful behavior but Cannot confirm that. General Limitations: no limitations and altered mental status Course Vital Signs Vital signs: Vital Signs Temperature 98.8 F 12/19/19 14:46 Pulse Rate 64 12/19/19 14:46 Respiratory Rate 14 12/19/19 14:46 Blood Pressure 98/62 12/19/19 14:46 Pulse Oximetry (%) 94 12/19/19 14:46 Temperature 98.8 F 12/19/19 14:46 Pulse Rate 68 12/19/19 20:46 Respiratory Rate 18 12/19/19 20:46 Blood Pressure 150/74 12/19/19 20:46 Pulse Oximetry (%) 98 12/19/19 20:46 MDM MDM Narrative Medical decision making narrative: Narrative: Somnolent/altered mental status different from previous- Broad differential includes everything from stroke to infection to metabolic changes etc.. We will check a CT of the head and chest x-ray. Ordered laboratory rule out infectious causes. Stable vitals at this time With mild hypotension but no fever Laboratory shows evidence of a UTISo we will start her on some Rocephin. Blood pressure shows modest improvement with fluids- Still low normal With systolic blood pressures in the low 100s CT scan of the head and chest x-ray do not show a reason for her somnolent- Order CT scan could be compatible with normal pressure hydrocephalus, This is chronic It does look at this time like she is having a UTI that is causing SIRS/ Sepsis And altered mental status. After getting fluids she was much more lucid and she would answer questions. She will require hospitalization because of her blood pressure I discussed the case with our hospitalist Dr. Lake who agreed to accept the patient for further care and evaluation in the hospital Lab Data Lab results reviewed: Yes I reviewed the patient's lab results. Result diagrams: 12/19/19 18:00 12/19/19 16:45 Labs: Lab Results 12/19/19 12/19/19 12/19/19 Range/Units 16:45 16:45 16:45 WBC (4.5-11.0) K/mcL RBC (4.00-5.20) M/mcL Hgb (12.0-15.0) g/dL Hct (36.0-48.0) % MCV (80.0-100.0) fL MCH (26.0-34.0) pg MCHC (31.0-36.0) g/dL RDW (11.5-14.5) % Plt Count (140-440) K/mcL MPV (7.4-10.4) fL Neut % (Auto) (38.0-78.0) % Lymph % (Auto) (15.0-49.0) % Sheridan % (Auto) (1.0-12.0) % Eos % (Auto) (0.0-7.0) % Baso % (Auto) (0.0-2.0) % Lymph # (Auto) (1.50-4.80) K/mcL Sheridan # (Auto) (0.10-0.90) K/mcL Eos # (Auto) (0.00-0.70) K/mcL Baso # (Auto) (0.00-0.20) K/mcL Absolute Neutrophils (1.80-8.00) K/mcL VBG Lactic Acid 2.3 H (0.5-2.0) mmol/L Sodium 134 (133-145) mmol/L Potassium 4.6 (3.3-5.1) mmol/L Chloride 101 (96-108) mmol/L Carbon Dioxide 21 L (22-30) mmol/L Anion Gap 12.0 (8.0-16.0) BUN 27 H (8-23) mg/dL Creatinine 1.2 H (0.6-1.1) mg/dL GFR Calculation 42 Glucose 112 H (70-105) mg/dL Calcium 9.0 (8.6-10.4) mg/dL Total Bilirubin 0.2 (0.1-1.0) mg/dL AST 17 (<32) U/L ALT < 5 (<40) U/L Alkaline Phosphatase 71 (39-117) U/L Ammonia 34 (11-51) umol/L Total Protein 6.3 (5.9-8.4) gm/dL Albumin 2.5 L (3.2-5.2) gm/dL Globulin 3.8 H (2.2-3.7) gm/dL Albumin/Globulin Ratio 0.7 L (1.0-2.3) Urine Color Urine Appearance (Clear) Urine pH (5.0-9.0) Ur Specific Whitman (1.000-1.035) Urine Protein (Negative) mg/dL Urine Glucose (UA) (Negative) mg/dL Urine Ketones (Negative) mg/dL Urine Occult Blood (Negative) mg/dL Urine Nitrate (Negative) Urine Bilirubin (Negative) mg/dL Urine Urobilinogen mg/dL Ur Leukocyte Esterase (Negative) /ug Urine RBC (0-1) /hpf Urine WBC (0-4) /hpf Ur Squamous Epith Cells (0-4) /hpf Urine Bacteria (0) /hpf Ur Culture Indicated? SARS-CoV-2 (PCR) (Negative) 12/19/19 12/19/19 12/19/19 Range/Units 17:38 18:00 19:46 WBC 9.1 (4.5-11.0) K/mcL RBC 4.07 (4.00-5.20) M/mcL Hgb 12.1 (12.0-15.0) g/dL Hct 38.1 (36.0-48.0) % MCV 93.6 (80.0-100.0) fL MCH 29.7 (26.0-34.0) pg MCHC 31.8 (31.0-36.0) g/dL RDW 15.4 H (11.5-14.5) % Plt Count 112 L (140-440) K/mcL MPV 10.3 (7.4-10.4) fL Neut % (Auto) 60.4 (38.0-78.0) % Lymph % (Auto) 20.3 (15.0-49.0) % Sheridan % (Auto) 14.8 H (1.0-12.0) % Eos % (Auto) 4.1 (0.0-7.0) % Baso % (Auto) 0.4 (0.0-2.0) % Lymph # (Auto) 1.85 (1.50-4.80) K/mcL Sheridan # (Auto) 1.35 H (0.10-0.90) K/mcL Eos # (Auto) 0.37 (0.00-0.70) K/mcL Baso # (Auto) 0.04 (0.00-0.20) K/mcL Absolute Neutrophils 5.50 (1.80-8.00) K/mcL VBG Lactic Acid (0.5-2.0) mmol/L Sodium (133-145) mmol/L Potassium (3.3-5.1) mmol/L Chloride (96-108) mmol/L Carbon Dioxide (22-30) mmol/L Anion Gap (8.0-16.0) BUN (8-23) mg/dL Creatinine (0.6-1.1) mg/dL GFR Calculation Glucose (70-105) mg/dL Calcium (8.6-10.4) mg/dL Total Bilirubin (0.1-1.0) mg/dL AST (<32) U/L ALT (<40) U/L Alkaline Phosphatase (39-117) U/L Ammonia (11-51) umol/L Total Protein (5.9-8.4) gm/dL Albumin (3.2-5.2) gm/dL Globulin (2.2-3.7) gm/dL Albumin/Globulin Ratio (1.0-2.3) Urine Color Yellow Urine Appearance Turbid A (Clear) Urine pH 5.0 (5.0-9.0) Ur Specific Whitman 1.011 (1.000-1.035) Urine Protein 100 A (Negative) mg/dL Urine Glucose (UA) Negative (Negative) mg/dL Urine Ketones Negative (Negative) mg/dL Urine Occult Blood 0.03 (Negative) mg/dL Urine Nitrate Negative (Negative) Urine Bilirubin Negative (Negative) mg/dL Urine Urobilinogen Negative mg/dL Ur Leukocyte Esterase 250 A (Negative) /ug Urine RBC 46 H (0-1) /hpf Urine WBC > 182 H (0-4) /hpf Ur Squamous Epith Cells 0 (0-4) /hpf Urine Bacteria Many A (0) /hpf Ur Culture Indicated? yes SARS-CoV-2 (PCR) Negative (Negative) Radiology Data Radiology results reviewed: Yes I reviewed the patient's radiology results. Radiology results narrative: Chest x-ray is read as no acute change. CT scan of the head shows enlarged ventricles consistent with normal pressure hydrocephalus although it is unclear of chronicity Discharge Plan Patient/Caregiver Discharge Instructions Pt seen by VETERINARIAN/PA only: No Clinical Impression: Altered mental status, Dementia, UTI (urinary tract infection), Sepsis Patient Disposition: Xfer As Inpt ([facility]) Condition: Fair Follow up with: Sai Aponte ARNP [Primary Care Provider] - Prescriptions: No Action Eliquis 2.5 mg tablet 2.5 mg PO BID Qty: 60 RF: 11 metoprolol succinate 25 mg tablet extended release 24 hr 25 mg PO QDAY Qty: 30 RF: 11 hydrocodone-acetaminophen 5-325 mg tablet 0.5 tab PO BID PRN (Reason: pain) Qty: 30 RF: 0 acetaminophen [Tylenol] 325 mg Tablet 650 mg PO Q8H PRN (Reason: Pain) RF: 0 lorazepam 0.5 mg tablet 0.5 mg PO Q6HP PRN (Reason: Anxiety) RF: 0 divalproex [Depakote] 125 mg Tablet,Delayed Release (Dr/Ec) 250 mg PO TID RF: 0 lactase [Lactaid] 3,000 unit Tablet 3,000 unit PO ONCE PRN (Reason: Lactose Intolerance) RF: 0 docusate sodium [Colace] 100 mg Capsule 100 mg PO PRN PRN (Reason: Constipation) RF: 0 escitalopram oxalate 10 mg tablet 10 mg PO DAILY RF: 0 triamcinolone acetonide 0.1 % cream 1 applic TOPICAL BID PRN (Reason: Rash) RF: 0 spironolactone 25 mg tablet 12.5 mg PO 3XW RF: 0 gabapentin 100 mg capsule 200 mg PO QID RF: 0
[2019-12-19] MEDS ORDERED: 0.9 % SODIUM CHLORIDE 1,000 ML IV SCH ×3 (15:45→23:14)
--- NOTE | 2019-12-19 15:58 | Cat Scan Report ---
CLINICAL INFORMATION: Altered mental status COMPARISON: 2019 TECHNIQUE: 2.5 mm helical slices were obtained in the skull base to vertex. Following reconstruction, axial reformatted images were reviewed at bone and parenchymal windows. The exam was performed using radiation dose optimization techniques including, but not limited to, automated exposure control, adjustment of the mA and/or kV according to patient size and use of iterative reconstruction technique. FINDINGS: The ventricles are disproportionately enlarged compared with the fissures and cisterns suggesting normal pressure hydrocephalus superimposed upon moderate atrophy. No extra-axial fluid collection or mass appreciated. Chronic ischemic changes noted in the cerebral white matter. There is no intracerebral hemorrhage, mass effect or edema.. Bone windows show no osseous abnormality. IMPRESSION: Findings suspicious for normal pressure hydrocephalus superimposed upon moderate atrophy.. Interpreted and Authenticated by: Ross Stewart 12/19/19
--- NOTE | 2019-12-19 16:18 | XRay Report ---
CLINICAL INFORMATION: altered mental status COMPARISON: 09/22/2019 FINDINGS: The heart is mildly enlarged. Mediastinum and pulmonary vessels are normal. Minor bibasilar atelectasis noted. No effusions IMPRESSION: Mild stable cardiomegaly. Minor bibasilar atelectasis Interpreted and Authenticated by: Ross Stewart 12/19/19
[2019-12-19 18:05] LABS: ALT/SGPT < 5 U/L (<40); AST/SGOT 17 U/L (<32); Albumin 2.5 gm/dL (3.2-5.2); Albumin/Globulin Ratio 0.7 (1.0-2.3); Alkaline Phosphatase 71 U/L (39-117); Bilirubin,Total 0.2 mg/dL (0.1-1.0); Blood Urea Nitrogen 27 mg/dL (8-23); Carbon Dioxide 21 mmol/L (22-30); Chloride 101 mmol/L (96-108); Globulin 3.8 gm/dL (2.2-3.7); Glomerular Filtration Rate 42; Glucose 112 mg/dL (70-105)
[2019-12-19 18:19] LABS: Appearance,Urine TURBID (Clear); Bacteria,Urine MANY /hpf (0); Bilirubin,Urine Negative (Negative); Color,Urine Yellow; Culture Indicated,Urine yes; Glucose,Urine (UA) Negative (Negative); Ketones,Urine Negative (Negative); Leukocyte Esterase,Urine 250 /ug (Negative); Nitrate,Urine Negative (Negative); Protein,Urine 100 mg/dL (Negative); Specific Gravity,Urine 1.011 (1.000-1.035); Urine Blood 0.03 mg/dL (Negative); Urine RBC 46 /hpf (0-1); Urine Squamous Epithelial Cell 0 /hpf (0-4); Urine WBC > 182 /hpf (0-4); Urobilinogen,Urine Negative
[2019-12-19] MEDS ORDERED: cefTRIAXone 1 GM VIAL IV ONE (18:26)
[2019-12-19 18:43] LABS: Basophils # (Auto) 0.04 K/mcL (0.00-0.20); Basophils % (Auto) 0.4 % (0.0-2.0); Eosinophils # (Auto) 0.37 K/mcL (0.00-0.70); Eosinophils % (Auto) 4.1 % (0.0-7.0); Hematocrit 38.1 % (36.0-48.0); Hemoglobin 12.1 g/dL (12.0-15.0); Lymphocytes # (Auto) 1.85 K/mcL (1.50-4.80); Lymphocytes % (Auto) 20.3 % (15.0-49.0); Mean Cell Volume 93.6 fL (80.0-100.0); Mean Corpuscular HGB Conc 31.8 g/dL (31.0-36.0); Mean Platelet Volume 10.3 fL (7.4-10.4); Monocytes # (Auto) 1.35 K/mcL (0.10-0.90); Monocytes % (Auto) 14.8 % (1.0-12.0); Neutrophils % (Auto) 60.4 % (38.0-78.0); Platelet Count 112 K/mcL (140-440); RBC 4.07 M/mcL (4.00-5.20); Red Cell Distribution Width 15.4 % (11.5-14.5); WBC 9.1 K/mcL (4.5-11.0)
[2019-12-19] MEDS ORDERED: ONDANSETRON 4 MG/2 ML VIAL IV PRN ×2 (22:27→23:14)
[2019-12-19] MEDS ORDERED: cefTRIAXone 1 GM in DEXTROSE 5% IN WATER 50 ML IV SCH (22:30)
[2019-12-19] MEDS ORDERED: DOCUSATE SODIUM 100 MG CAPSULE PO PRN ×2 (22:34→23:14)
[2019-12-19] MEDS ORDERED: LACTASE 3000 UNIT PO PRN (22:34)
[2019-12-19] MEDS ORDERED: ACETAMINOPHEN (PP) 325MG TABLET (#50) PO PRN (22:34)
[2019-12-19] MEDS ORDERED: TRIAMCINOLONE CREAM 0.1% 15G 1 DOSE TUBE TOPICAL PRN ×2 (22:34→23:14)
[2019-12-19] MEDS ORDERED: LEVOFLOXACIN 500 MG/100 ML BAG IV SCH (22:45)
--- NOTE | 2019-12-19 22:49 | Internal Med History&Physical ---
HPI History of Present Illness Patient information: Note initiated : 12/19/19 at 10:39 pm Service Date, if different from initiated Date: [] Patient: Maxi Encarnacion a 84 y/o F admitted on for Altered Mental Status. Chief Complaint: [] History of present illness: Ms. Encarnacion is a 84 year old F with a past medical history of dementia, history of atrial fibrillation on Eliquis, CKD, systolic and diastolic CHF, and hypertension who was brought to the ED from a senior care due to AMS. Patient is awake but does not answer any questions. As per chart, her normal baseline is screaming and yelling. But she was found to be nonverbal at the facility. In the ER, CT of the head showed Findings suspicious for normal pressure hydrocephalus superimposed upon moderate atrophy. Urinalysis compatible with UTI and 1 dose of ceftriaxone added to liter normal saline were given in the ER. Review of Systems ROS unobtainable: due to mental status PFSH PFSH All Active Problems Dementia (Acute) Sepsis (Acute) Altered mental status (Acute) Acute renal failure (Acute) Acute renal failure superimposed on stage 3 chronic kidney disease (Acute) Hyperkalemia (Acute) Hyponatremia (Acute) Sepsis (Acute) UTI (urinary tract infection) (Acute) Fever (Acute) Pulmonary congestion (Acute) Opioid abuse (Acute) Weakness (Acute) Paroxysmal atrial fibrillation (Chronic) Multifocal atrial tachycardia (Chronic) Diastolic congestive heart failure (Chronic) Depression (Chronic) HTN (hypertension) (Chronic) Systolic congestive heart failure (Chronic) Multiple falls (Chronic) Acute bacterial rhinosinusitis (Acute) Pedal edema (Chronic) Chronic kidney disease, stage III (moderate) (Chronic) Atrophic vaginitis (Chronic) Candidiasis of vagina (Acute) Acute bronchitis (Chronic) Cough (Chronic) Peripheral neuropathy (Chronic) Anemia, unspecified (Chronic) Lupus erythematosus (Chronic) Allergic conjunctivitis (Chronic) Syncope and collapse (Chronic) Encounter for long-term (current) use of other medications (Chronic) Primary open angle glaucoma (Chronic) Pre-excitation syndrome (Chronic) Irritable bowel syndrome (Chronic) Unspecified contact dermatitis, unspecified cause (Chronic) Unspecified osteoarthritis, unspecified site (Chronic) Polyneuropathy (Chronic) 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) Gastro-esophageal reflux disease without esophagitis (Chronic) Epigastric pain (Chronic) Cardiomegaly (Chronic) Frequency of micturition (Chronic) Abnormal weight loss (Chronic) Hyperlipidemia (Chronic) Renal osteodystrophy (Chronic) Vitamin D deficiency (Chronic) Anemia in chronic kidney disease (Chronic) Hypertension, essential (Chronic) Major depressive disorder, single episode (Chronic) Anxiety state (Chronic) Diarrhea (Chronic) Chronic kidney disease, stage 3 (Chronic) Kidney problem (Chronic) History of tobacco use (Chronic) Neuropathy (Chronic) Restless leg (Chronic) Fibromyalgia (Chronic) Renal failure (Chronic) Migraines (Chronic) Lupus (Chronic) Joint pain (Chronic) Insomnia (Chronic) WPW (Aepax-Brzavkhcm-Xfcno syndrome) (Chronic) Gallbladder problem (Chronic) Daytime sleepiness (Chronic) Muscle pain (Chronic) Skin cancer (Chronic) Arthritis (Chronic) Anxiety (Chronic) Acid reflux (Chronic) Medical History Abnormal weight loss (Chronic) Acid reflux (Chronic) 2000 Acute bronchitis (Chronic) Allergic conjunctivitis (Chronic) Anemia in chronic kidney disease (Chronic) Anemia, unspecified (Chronic) Anxiety (Chronic) 1995 Anxiety state (Chronic) Arthritis (Chronic) Cardiomegaly (Chronic) Chronic kidney disease, stage 3 (Chronic) Cough (Chronic) Daytime sleepiness (Chronic) 1995 Diarrhea (Chronic) Discoid lupus erythematosus (Chronic) Encounter for long-term (current) use of other medications (Chronic) Epigastric pain (Chronic) Fibromyalgia (Chronic) 1986 Frequency of micturition (Chronic) Gallbladder problem (Chronic) Removed Gastro-esophageal reflux disease without esophagitis (Chronic) History of tobacco use (Chronic) Hyperlipidemia (Chronic) Hypertension, essential (Chronic) Insomnia (Chronic) Irritable bowel syndrome (Chronic) w/diarrhea Joint pain (Chronic) Kidney problem (Chronic) Lichen sclerosus et atrophicus (Chronic) Lupus (Chronic) 1995 Lupus erythematosus (Chronic) Major depressive disorder, single episode (Chronic) Migraines (Chronic) Multiple falls (Chronic) Muscle pain (Chronic) 1995 Neuropathy (Chronic) 2015 In feet Peripheral neuropathy (Chronic) Polyneuropathy (Chronic) Pre-excitation syndrome (Chronic) Primary open angle glaucoma (Chronic) Renal failure (Chronic) Renal osteodystrophy (Chronic) Restless leg (Chronic) 1965 Skin cancer (Chronic) Syncope and collapse (Chronic) Systolic congestive heart failure (Chronic) Unspecified contact dermatitis, unspecified cause (Chronic) Unspecified osteoarthritis, unspecified site (Chronic) Vitamin D deficiency (Chronic) WPW (Gmnzk-Cynrmwwgg-Xrxun syndrome) (Chronic) 1985 Surgery Surgical History H/O colonoscopy (Chronic) 2013 Dr. Kemp History of cholecystectomy (Chronic) 2004 History of coronary artery bypass graft (Acute) History of herniorrhaphy (Chronic) 2012 History of partial hysterectomy (Chronic) 1961 History of right knee joint replacement (Chronic) Hx of appendectomy (Chronic) 1963 S/P complete hysterectomy (Chronic) 1964 Family History Mother Arthritis Uterine cancer Dementia Father Arthritis Grandmother Arthritis Maternal Grandmother Arthritis Paternal Cancer Paternal Sister Lymphoma Migraine Grandfather Heart attack Maternal Stroke Maternal Social History marital status: other: Children-2 smoking status: Former smoker alcohol intake frequency: does not drink substance use type: does not use MEDS/ALLERGIES Home Medications and Allergies Home Medications Medication Instructions Recorded Confirmed Type apixaban 2.5 mg tablet 2.5 mg PO BID #60 tab 04/23/19 12/19/19 Rx metoprolol succinate 25 mg 25 mg PO QDAY #30 tab 04/23/19 12/19/19 Rx tablet,extended release 24 hr hydrocodone 5 mg-acetaminophen 325 0.5 tab PO BID PRN #30 tab 05/23/19 12/19/19 Rx mg tablet acetaminophen [Tylenol] 650 mg PO Q8H PRN 09/17/19 12/19/19 History divalproex [Depakote] 250 mg PO TID 09/17/19 12/19/19 History docusate sodium [Colace] 100 mg PO PRN PRN 09/17/19 12/19/19 History escitalopram oxalate 10 mg PO DAILY 09/17/19 12/19/19 History lactase [Lactaid] 3,000 unit PO ONCE PRN 09/17/19 12/19/19 History lorazepam 0.5 mg PO Q6HP PRN 09/17/19 12/19/19 History gabapentin 200 mg PO QID 12/19/19 12/19/19 History spironolactone 12.5 mg PO 3XW 12/19/19 12/19/19 History triamcinolone acetonide 1 applic TOPICAL BID PRN 12/19/19 12/19/19 History Allergies Allergy/AdvReac Type Severity Reaction Status Date / Time Amoxicillin Allergy Severe Anaphylaxis Verified 09/22/19 15:19 nitrofurantoin Allergy Severe Anaphylaxis Verified 09/22/19 15:19 butalbital [From Fioricet] Allergy Intermediate Rash Verified 09/22/19 15:19 iodine Allergy Intermediate Rash Verified 09/22/19 15:19 amitriptyline AdvReac Mild Bad Verified 09/22/19 15:19 dreams/ space out sertraline [From Zoloft] AdvReac Mild Nightmare Verified 09/22/19 15:19 EXAM Constitutional Vitals: Temp Pulse Resp BP Pulse Ox 98.8 F 65 12 98/61 96 12/19/19 22:36 12/19/19 22:36 12/19/19 22:36 12/19/19 22:36 12/19/19 22:36 Additional findings Additional findings: General -awake but does not answer questions, no acute distress Eyes -no conjunctivae injection ENT no redness or rash around throat or on face Neck no JVD, no thyromegaly Respiratory: Lungs -clear, no wheezing or crackles. Cardiovascular - RRR no m/r/g, GI - Normal bowel sounds, no distended, soft. Extremeties - No edema, cyanosis or clubbing Hemo/lymphatic/immune no lymphadenopathy Neurological awake, does not answer questions. Psychiatry does not answer questions DATA Data Completed and Pending Labs: Labs from last 24 hours 12/19/19 12/19/19 12/19/19 19:46 18:00 18:00 WBC 9.1 RBC 4.07 Hgb 12.1 Hct 38.1 MCV 93.6 MCH 29.7 MCHC 31.8 RDW 15.4 H Plt Count 112 L MPV 10.3 Neut % (Auto) 60.4 Lymph % (Auto) 20.3 [place] % (Auto) 14.8 H Eos % (Auto) 4.1 Baso % (Auto) 0.4 Lymph # (Auto) 1.85 [place] # (Auto) 1.35 H Eos # (Auto) 0.37 Baso # (Auto) 0.04 Absolute Neutrophils 5.50 VBG Lactic Acid Sodium Potassium Chloride Carbon Dioxide Anion Gap BUN Creatinine GFR Calculation Glucose Hemoglobin A1c Pending Estim Average Glucose Pending Calcium Total Bilirubin AST ALT Alkaline Phosphatase Ammonia Total Protein Albumin Globulin Albumin/Globulin Ratio Urine Color Urine Appearance Urine pH Ur Specific [place] Urine Protein Urine Glucose (UA) Urine Ketones Urine Occult Blood Urine Nitrate Urine Bilirubin Urine Urobilinogen Ur Leukocyte Esterase Urine RBC Urine WBC Ur Squamous Epith Cells Urine Bacteria Ur Culture Indicated? SARS-CoV-2 (PCR) Negative 12/19/19 12/19/19 12/19/19 17:38 16:45 16:45 WBC RBC Hgb Hct MCV MCH MCHC RDW Plt Count MPV Neut % (Auto) Lymph % (Auto) [place] % (Auto) Eos % (Auto) Baso % (Auto) Lymph # (Auto) [place] # (Auto) Eos # (Auto) Baso # (Auto) Absolute Neutrophils VBG Lactic Acid 2.3 H Sodium Potassium Chloride Carbon Dioxide Anion Gap BUN Creatinine GFR Calculation Glucose Hemoglobin A1c Estim Average Glucose Calcium Total Bilirubin AST ALT Alkaline Phosphatase Ammonia 34 Total Protein Albumin Globulin Albumin/Globulin Ratio Urine Color Yellow Urine Appearance Turbid A Urine pH 5.0 Ur Specific [place] 1.011 Urine Protein 100 A Urine Glucose (UA) Negative Urine Ketones Negative Urine Occult Blood 0.03 Urine Nitrate Negative Urine Bilirubin Negative Urine Urobilinogen Negative Ur Leukocyte Esterase 250 A Urine RBC 46 H Urine WBC > 182 H Ur Squamous Epith Cells 0 Urine Bacteria Many A Ur Culture Indicated? yes SARS-CoV-2 (PCR) 12/19/19 12/19/19 16:45 16:45 WBC Pending RBC Pending Hgb Pending Hct Pending MCV Pending MCH Pending MCHC Pending RDW Pending Plt Count Pending MPV Pending Neut % (Auto) Pending Lymph % (Auto) [place] % (Auto) Eos % (Auto) Baso % (Auto) Lymph # (Auto) [place] # (Auto) Eos # (Auto) Baso # (Auto) Absolute Neutrophils VBG Lactic Acid Sodium 134 Potassium 4.6 Chloride 101 Carbon Dioxide 21 L Anion Gap 12.0 BUN 27 H Creatinine 1.2 H GFR Calculation 42 Glucose 112 H Hemoglobin A1c Estim Average Glucose Calcium 9.0 Total Bilirubin 0.2 AST 17 ALT < 5 Alkaline Phosphatase 71 Ammonia Total Protein 6.3 Albumin 2.5 L Globulin 3.8 H Albumin/Globulin Ratio 0.7 L Urine Color Urine Appearance Urine pH Ur Specific [place] Urine Protein Urine Glucose (UA) Urine Ketones Urine Occult Blood Urine Nitrate Urine Bilirubin Urine Urobilinogen Ur Leukocyte Esterase Urine RBC Urine WBC Ur Squamous Epith Cells Urine Bacteria Ur Culture Indicated? SARS-CoV-2 (PCR) A/P Narrative A/P Narrative: 1. AMS Etiology unknown, could be due to sepsis Her normal baseline is screaming and yelling She is now awake but does not answer any questions CT of the head showed no acute changes Monitor 2. Sepsis/septic shock 2nd to UTI 3. UIT, urine culture on 10/01/2017 - Ecoli, sensitive to all antibiotics. Blood culture Urine culture Lactic acid 2.3 2 L IV fluid was given in the ER Levaquin 500 mg daily (allergic to amoxicillin) Gentle IV fluid Levaphed prn 4. Dementia Continue home medication 5. Hx of A. fib on apixaban Home metoprolol is on hold due to soft blood pressure Monitor 6. Thrombocytopenia, 112 Repeat platelets in the morning 7. TONY or TONY on CKD, creatinine 1.1 on Avoid nephrotoxic meds IV fluid Repeat the renal function in morning 8. Chronic systolic and diastolic CHF, BNP 2285 Intake and output Correct electrolytes Gentle IV fluid 9. Hx of HTN Metoprolol and spironolactone are on hold due to soft blood pressure 10. Normal pressure hydrocephalus CT of head - Findings suspicious for normal pressure hydrocephalus superimposed upon moderate atrophy. Follow with neurology 11. DVT prophylaxis: Eliquis 12. CODE STATUS: DNI Time Spent With Patient Time: Total time spent is greater than 50% in coordination of care (as documented) at patient's floor/unit and/or counseling patient:
[2019-12-19] MEDS ORDERED: 0.9 % SODIUM CHLORIDE 250 ML IV SCH ×3 (23:00→23:14)
[2019-12-19] MEDS ORDERED: NOREPINEPHRINE BITARTRATE 8 MG in 0.9 % SODIUM CHLORIDE 242 ML IV SCH (23:00)
[2019-12-20 00:20] LABS: Hemoglobin A1C 5.6 % Hgb (4.0-6.0)
[2019-12-20] MEDS ORDERED: 0.9 % SODIUM CHLORIDE 10 ML SYRINGE IV SCH ×2 (06:00)
[2019-12-20] MEDS ORDERED: ACETAMINOPHEN 500 MG TABLET PO PRN ×2 (07:46→08:54)
[2019-12-20] MEDS ORDERED: LACTASE 1 TABLET PO PRN ×2 (07:47→08:54)
[2019-12-20] MEDS ORDERED: METOCLOPRAMIDE 10 MG/2 ML VIAL IV PRN ×2 (07:49→08:54)
[2019-12-20] MEDS ORDERED: TRIAMCINOLONE CREAM 0.1% 15G 1 DOSE TUBE TOPICAL PRN (08:54)
[2019-12-20] MEDS ORDERED: DOCUSATE SODIUM 100 MG CAPSULE PO PRN (08:54)
[2019-12-20] MEDS ORDERED: GABAPENTIN 100 MG CAPSULE PO SCH ×2 (09:00)
[2019-12-20] MEDS ORDERED: ESCITALOPRAM 10 MG TABLET PO SCH ×2 (09:00)
[2019-12-20] MEDS ORDERED: NON FORMULARY MEDICATION 1 DOSE MISCELL (Apixaban [Eliquis] 2.5 MG) PO SCH (09:00)
[2019-12-20] MEDS ORDERED: HEPARIN 5,000 UNIT/ML VIAL SQ SCH (09:00)
[2019-12-20] MEDS ORDERED: APIXABAN 5 MG TABLET PO SCH (09:00)
[2019-12-20] MEDS ORDERED: DIVALPROEX 125 MG CAP.SPRINK PO SCH (09:00)
[2019-12-20] MEDS ORDERED: DIVALPROEX 250 MG PO SCH (09:00)
[2019-12-20] MEDS ORDERED: NOREPINEPHRINE BITARTRATE 8 MG in 0.9 % SODIUM CHLORIDE 242 ML IV PRN ×2 (09:00→13:00)
[2019-12-20] MEDS ORDERED: LEVOFLOXACIN 500 MG/100 ML BAG IV ONE ×2 (09:00)
[2019-12-20] MEDS: 0.9 % SODIUM CHLORIDE 250 ML IV SCH ×6 (10:03→20:46)
[2019-12-20] MEDS: ESCITALOPRAM 10 MG TABLET PO SCH (11:06)
[2019-12-20] MEDS: GABAPENTIN 100 MG CAPSULE PO SCH ×3 (11:06→20:35)
[2019-12-20] MEDS: APIXABAN 5 MG TABLET PO SCH ×2 (11:07→20:35)
[2019-12-20] MEDS: DIVALPROEX 125 MG CAP.SPRINK PO SCH ×3 (11:07→20:36)
[2019-12-20] MEDS: 0.9 % SODIUM CHLORIDE 1,000 ML IV SCH ×2 (12:21→22:20)
--- NOTE | 2019-12-20 13:00 | Internal Med Progress Note ---
SUBJECTIVE Subjective Patient information: Note initiated : 12/20/19 at 12:59 pm Service Date, if different from initiated Date: [] Patient: Maxi Encarnacion a 84 y/o F admitted on 12/19/19 for Altered Mental Status. Chief Complaint: [] Ms. Encarnacion is a 84 year old F with a past medical history of dementia, history of atrial fibrillation on Eliquis, CKD, systolic and diastolic CHF, and hypertension who was brought to the ED from a shelter due to AMS. Patient is awake but does not answer any questions. As per chart, her normal baseline is screaming and yelling. But she was found to be nonverbal at the facility. In the ER, CT of the head showed Findings suspicious for normal pressure hy drocephalus superimposed upon moderate atrophy. Urinalysis compatible with UTI and 1 dose of ceftriaxone added to liter normal saline were given in the ER. 12/19 Pt's mental status improving. She keeps screaming and yelling which is her baseline. HR 57 - 75 Her told RN this morning he would like to change her code to DNR/DNI today and continue current treatment today. He might pursue comfort care tomorrow. Review of Systems ROS unobtainable: due to mental status Constitutional Vitals: Vital Signs Temp Pulse Resp BP Pulse Ox 97.6 F 57 L 15 111/63 100 12/20/19 04:01 12/20/19 06:02 12/20/19 07:11 12/20/19 06:02 12/20/19 07:11 Period Temp Pulse Resp BP Sys/Chicas Pulse Ox Last 24 Hr 97.6 F-98.8 F 56-78 10-24 94-150/46-96 92-100 Intake and Output 12/19/19 12/20/19 12/20/19 21:59 05:59 13:59 Intake Total 1999 Output Total 4 Balance 1999 Weight 60.781 kg 59.783 kg Intake & Output: Intake & Output 12/19/19 12/20/19 12/20/19 21:59 05:59 13:59 Intake Total 1999 Output Total 4 Balance 1999 Weight 60.781 kg 59.783 kg Intake: IV 2000 Sodium Chloride 0.9% 1,000 ml @ 2000 Wide Open IV BOLUS ONE Rx#: [id number] Output: # of times incontinent of urine 4 Other: Urine Appearance Fem Cath Purulent Urine Color Fem Cath Pale Additional findings Additional findings: General -awake, screaming and yelling at times, no acute distress Eyes -no conjunctivae injection ENT no redness or rash around throat or on face Neck no JVD, no thyromegaly Respiratory: Lungs -clear, no wheezing or crackles. Cardiovascular - RRR no m/r/g, GI - Normal bowel sounds, no distended, soft. Extremeties - No edema, cyanosis or clubbing Hemo/lymphatic/immune no lymphadenopathy Neurological awake, screaming and yelling at times. Psychiatry does not answer questions OBJ DATA Labs CBC & Chem 7: 12/19/19 18:00 12/19/19 16:45 Labs: Abnormal Lab Results 12/19/19 12/19/19 12/19/19 18:00 17:38 16:45 RDW 15.4 H Plt Count 112 L [place] % (Auto) 14.8 H [place] # (Auto) 1.35 H VBG Lactic Acid 2.3 H Carbon Dioxide BUN Creatinine Glucose Albumin Globulin Albumin/Globulin Ratio Urine Appearance Turbid A Urine Protein 100 A Ur Leukocyte Esterase 250 A Urine RBC 46 H Urine WBC > 182 H Urine Bacteria Many A 12/19/19 16:45 RDW Plt Count [place] % (Auto) [place] # (Auto) VBG Lactic Acid Carbon Dioxide 21 L BUN 27 H Creatinine 1.2 H Glucose 112 H Albumin 2.5 L Globulin 3.8 H Albumin/Globulin Ratio 0.7 L Urine Appearance Urine Protein Ur Leukocyte Esterase Urine RBC Urine WBC Urine Bacteria Meds: Medications Acetaminophen (Tylenol) 500 mg PO Q8HP PRN PRN Reason: PAIN/FEVER > 101 Apixaban (Eliquis) 2.5 mg PO BID [facility] Last Admin: 12/20/19 11:07 Dose: 2.5 mg Documented by: Divalproex Sodium (Depakote Sprinkles) 250 mg PO TID [facility] Last Admin: 12/20/19 11:07 Dose: 250 mg Documented by: Docusate Sodium (Colace) 100 mg PO DAILYP PRN PRN Reason: Constipation Escitalopram Oxalate (Lexapro) 5 mg PO DAILY [facility] Last Admin: 12/20/19 11:06 Dose: 5 mg Documented by: Gabapentin (Neurontin) 200 mg PO TID [facility] Last Admin: 12/20/19 11:06 Dose: 200 mg Documented by: Sodium Chloride (Sodium Chloride 0.9%) 250 mls @ 20 mls/hr IV .[id number] [facility] Last Admin: 12/20/19 10:03 Dose: Not Given Documented by: Sodium Chloride (Sodium Chloride 0.9%) 250 mls @ 20 mls/hr IV .[id number] [facility] Last Admin: 12/20/19 10:03 Dose: Not Given Documented by: Sodium Chloride (Sodium Chloride 0.9%) 1,000 mls @ 50 mls/hr IV .[id number] [facility] Last Admin: 12/20/19 12:21 Dose: Not Given Documented by: Levofloxacin (Levaquin) 250 mg in 50 mls @ 50 mls/hr IV DAILY [facility] Norepinephrine Bitartrate 8 mg (/ Sodium Chloride) 250 mls @ 18.75 mls/hr IV Q14H PRN; Protocol PRN Reason: TITRATE TO KEEP MAP > 65 Sodium Chloride (Sodium Chloride 0.9%) 250 mls @ 20 mls/hr IV .[id number] [facility] Last Admin: 12/20/19 10:03 Dose: Not Given Documented by: Lactase (Lactaid) 1 tab PO DAILYP PRN PRN Reason: Lactose Intolerance Metoclopramide HCl (Reglan) 5 mg IV Q8HP PRN PRN Reason: Nausea AND VOMITING Sodium Chloride (Saline Flush) 10 ml IV Q8 [facility] Triamcinolone Acetonide (Kenalog Cream 0.1%) 1 dose TOPICAL BIDP PRN PRN Reason: Rash A/P Narrative A/P Narrative: 1. AMS Etiology unknown, could be due to sepsis Her normal baseline is screaming and yelling She is now awake and screams and yells at times CT of the head showed no acute changes Monitor 2. Sepsis/septic shock 2nd to UTI 3. UIT, urine culture on 10/01/2017 - Ecokim, sensitive to all antibiotics. Blood culture pending Urine culture pending Levaquin 500 mg daily (allergic to amoxicillin) Gentle IV fluid 4. Dementia Continue home medication 5. Hx of A. fib on apixaban Home metoprolol is on hold due to soft blood pressure Monitor 6. Thrombocytopenia Repeat platelets in the morning 7. TONY or TONY on CKD, creatinine 1.1 on Creatinine 1.2 Avoid nephrotoxic meds IV fluid Repeat the renal function in morning 8. Chronic systolic and diastolic CHF, BNP 2285 Intake and output Correct electrolytes Gentle IV fluid 9. Hx of HTN Metoprolol and spironolactone are on hold due to soft blood pressure 10. Normal pressure hydrocephalus CT of head - Findings suspicious for normal pressure hydrocephalus superimposed upon moderate atrophy. Follow with neurology 11. DVT prophylaxis: Eliquis 12. CODE STATUS: DNI Time Spent With Patient Time: Total time spent is greater than 50% in coordination of care (as documented) at patient's floor/unit and/or counseling patient:
[2019-12-20] MEDS: LORazepam 0.5 MG TABLET PO PRN (13:25)
[2019-12-20] MEDS: 0.9 % SODIUM CHLORIDE 10 ML SYRINGE IV SCH ×2 (15:03→20:36)
[2019-12-21] MEDS: 0.9 % SODIUM CHLORIDE 1,000 ML IV SCH (04:23)
[2019-12-21] MEDS: 0.9 % SODIUM CHLORIDE 10 ML SYRINGE IV SCH ×3 (04:23→23:08)
[2019-12-21] MEDS: GABAPENTIN 100 MG CAPSULE PO SCH (08:31)
[2019-12-21] MEDS: DIVALPROEX 125 MG CAP.SPRINK PO SCH (08:31)
[2019-12-21] MEDS: APIXABAN 5 MG TABLET PO SCH (08:33)
[2019-12-21] MEDS: ESCITALOPRAM 10 MG TABLET PO SCH (08:33)
[2019-12-21] MEDS: LORazepam 0.5 MG TABLET PO PRN (08:34)
[2019-12-21] MEDS ORDERED: ONDANSETRON 4 MG ODT TABLET SL PRN (08:45)
[2019-12-21] MEDS ORDERED: SCOPOLAMINE 1 PATCH PATCH TOPICAL SCH (09:00)
[2019-12-21] MEDS ORDERED: LEVOFLOXACIN 250 MG/50 ML BAG IV SCH ×2 (09:00)
[2019-12-21] MEDS ORDERED: LORazepam 2 MG/ML VIAL IV ONE (09:56)
[2019-12-21] MEDS: morphine 20 MG/ML ORAL.CONC SL PRN ×2 (10:17→12:33)
[2019-12-21] MEDS: LORazepam 1 MG TABLET SL PRN (11:11)
--- NOTE | 2019-12-21 12:52 | Internal Med Progress Note ---
SUBJECTIVE Subjective Patient information: Note initiated : 12/21/19 at 12:48 pm Service Date, if different from initiated Date: [] Patient: Maxi Encarnacion a 84 y/o F admitted on 12/19/19 for Altered Mental Status. Chief Complaint: [] Interval history: Ms. Encarnacion is a 84 year old F with a past medical history of dementia, history of atrial fibrillation on Eliquis, CKD, systolic and diastolic CHF, and hypertension who was brought to the ED from a group home due to AMS. Patient is awake but does not answer any questions. As per chart, her normal baseline is screaming and yelling. But she was found to be nonverbal at the facility. In the ER, CT of the head showed Findings suspicious for normal pressure hydrocephalus superimposed upon moderate atrophy. Urinalysis compatible with UTI and 1 dose of ceftriaxone added to liter normal saline were given in the ER. 12/19 Pt's mental status improving. She keeps screaming and yelling which is her baseline. HR 57 - 75 Her told RN this morning he would like to change her code to DNR/DNI today and continue current treatment today. He might pursue comfort care tomorrow. 12/20 RN Isabel and I updated pt's condition to Marty Encarnacion ([id number]) who decided to pursue comfort care only. She will be on pain meds, ativan for anxiety, zofran for n/v, etc. Stop all other meds which are not related to comfort care. Mr. Marty Encarnacion fully understood pain med and ativan can suppress respiration but the goal is to keep her comfortable. He would like to start comfort care now. 12/21 Constitutional Vitals: Vital Signs Temp Pulse Resp BP Pulse Ox 99.5 F H 73 18 101/48 96 12/21/19 08:00 12/21/19 08:00 12/21/19 08:00 12/21/19 08:00 12/21/19 08:00 Period Temp Pulse Resp BP Sys/Chicas Pulse Ox Last 24 Hr 98.1 F-99.5 F 54-80 12- 101-128/48-90 87-98 Intake and Output 12/20/19 12/21/19 12/21/19 21:59 05:59 13:59 Intake Total 533 Output Total 3 Balance -3 533 Weight 57.606 kg Intake & Output: Intake & Output 12/20/19 12/21/19 12/21/19 21:59 05:59 13:59 Intake Total 533 Output Total 3 Balance -3 533 Weight 57.606 kg Intake: IV 533 Sodium Chloride 0.9% 1,000 ml @ 533 50 mls/hr IV .Q20H [facility] Rx#: [id number] Output: # of times incontinent of urine 3 Other: # Voids 2 Exam: General: Awake, No acute Distress Eyes/N/T: EOMI, Head/Neck: neck supple, CV: RRR, No murmurs, Pulm: Clear b/l, no wheezing/rhonchi/rales Abd: soft, nontender, +BS x4 Ext: no clubbing/cyanosis/edema Neuro: Alert, no focal deficits, moves all extremities, Skin: warm/dry OBJ DATA Labs CBC & Chem 7: 12/19/19 18:00 12/19/19 16:45 Labs: Abnormal Lab Results 12/19/19 12/19/19 12/19/19 18:00 17:38 16:45 RDW 15.4 H Plt Count 112 L [place] % (Auto) 14.8 H [place] # (Auto) 1.35 H VBG Lactic Acid 2.3 H Carbon Dioxide BUN Creatinine Glucose Albumin Globulin Albumin/Globulin Ratio Urine Appearance Turbid A Urine Protein 100 A Ur Leukocyte Esterase 250 A Urine RBC 46 H Urine WBC > 182 H Urine Bacteria Many A 12/19/19 16:45 RDW Plt Count Avery % (Auto) A[place] # (Auto) VBG Lactic Acid Carbon Dioxide 21 L BUN 27 H Creatinine 1.2 H Glucose 112 H Albumin 2.5 L Globulin 3.8 H Albumin/Globulin Ratio 0.7 L Urine Appearance Urine Protein Ur Leukocyte Esterase Urine RBC Urine WBC Urine Bacteria Meds: Medications Lorazepam (Ativan) 1 mg SL Q4HP PRN PRN Reason: Agitation Last Admin: 12/21/19 11:11 Dose: 1 mg Documented by: Morphine Sulfate (Morphine) 10 mg SL Q2HP PRN; Protocol PRN Reason: Per Pain Protocol Last Admin: 12/21/19 12:33 Dose: 10 mg Documented by: Ondansetron HCl (Zofran Odt) 4 mg SL Q4-6HP PRN PRN Reason: Nausea And Vomiting Scopolamine (Transderm-Scop) 1 patch TOPICAL Q72H [facility] Last Admin: 12/21/19 10:16 Dose: 1 patch Documented by: Sodium Chloride (Saline Flush) 10 ml IV Q8 [facility] Last Admin: 12/21/19 12:34 Dose: 10 ml Documented by: A/P Narrative A/P Narrative: A: *AMS: *Sepsis/septic shock 2nd to UTI *UTI *Dementia *Hx of A. fib on apixaban *Thrombocytopenia *TONY or TONY on CKD, creatinine 1.1 on *Chronic systolic and diastolic CHF, BNP 2285 *Hx of HTN *Normal pressure hydrocephalus P: -comfort care only -pt and family support Time Spent With Patient Time: Total time spent is greater than 50% in coordination of care (as documented) at patient's floor/unit and/or counseling patient:
--- NOTE | 2019-12-21 13:16 | Internal Med Progress Note ---
SUBJECTIVE Subjective Patient information: Note initiated : 12/21/19 at 1:02 pm Service Date, if different from initiated Date: [] Patient: Maxi Encarnacion a 84 y/o F admitted on 12/19/19 for Altered Mental Status. Chief Complaint: [] Ms. Encarnacion is a 84 year old F with a past medical history of dementia, history of atrial fibrillation on Eliquis, CKD, systolic and diastolic CHF, and hypertension who was [facility] the ED from a [facility] due to [facility]. Patient is awake but does not answer any questions. As per chart, her normal baseline is screaming and yelling. But she was found to be nonverbal at the facility. In the ER, CT of the head showed Findings suspicious for normal pressure hyd rocephalus superimposed upon moderate atrophy. Urinalysis compatible with UTI and 1 dose of ceftriaxone added to liter normal saline were given in the ER. 12/19 Pt's mental status improving. She keeps screaming and yelling which is her baseline. HR 57 - 75 Her told RN this morning he would like to change her code to DNR/DNI today and continue current treatment today. He might pursue comfort care tomorrow. 12/20 RN Isabel and I updated pt's condition to Marty Encarnacion ([phone]) who decided to pursue comfort care only. She will be on pain meds, ativan for anxiety, zofran for n/v, etc. Stop all other meds which are not related to comfort care. Mr. Marty Encarnacion fully understood pain med and ativan can suppress respiration but the goal is to keep her comfortable. He would like to start comfort care now. Review of Systems ROS unobtainable: due to mental status Constitutional Vitals: Vital Signs Temp Pulse Resp BP Pulse Ox 99.5 F H 73 18 101/48 96 12/21/19 08:00 12/21/19 08:00 12/21/19 08:00 12/21/19 08:00 12/21/19 08:00 Period Temp Pulse Resp BP Sys/Chicas Pulse Ox Last 24 Hr 98.1 F-99.5 F 54-80 12-20 101-128/48-90 87-98 Intake and Output 12/20/19 12/21/19 12/21/19 21:59 05:59 13:59 Intake Total 533 Output Total 3 Balance -3 533 Weight 57.606 kg Intake & Output: Intake & Output 12/20/19 12/21/19 12/21/19 21:59 05:59 13:59 Intake Total 533 Output Total 3 Balance -3 533 Weight 57.606 kg Intake: IV 533 Sodium Chloride 0.9% 1,000 ml @ 533 50 mls/hr IV .Q20H [facility] Rx#: [id number] Output: # of times incontinent of urine 3 Other: # Voids 2 Additional findings Additional findings: General -awake, screaming and yelling at times, no acute distress Eyes -no conjunctivae injection ENT no redness or rash around throat or on face Neck no JVD, no thyromegaly Respiratory: Lungs -clear, no wheezing or crackles. Cardiovascular - RRR no m/r/g, GI - Normal bowel sounds, no distended, soft. Extremeties - No edema, cyanosis or clubbing Hemo/lymphatic/immune no lymphadenopathy Neurological awake, screaming and yelling at times. Psychiatry does not answer questions OBJ DATA Labs CBC & Chem 7: 12/19/19 18:00 12/19/19 16:45 Labs: Abnormal Lab Results 12/19/19 12/19/19 12/19/19 18:00 17:38 16:45 RDW 15.4 H Plt Count 112 L [place] % (Auto) 14.8 H [place] # (Auto) 1.35 H VBG Lactic Acid 2.3 H Carbon Dioxide BUN Creatinine Glucose Albumin Globulin Albumin/Globulin Ratio Urine Appearance Turbid A Urine Protein 100 A Ur Leukocyte Esterase 250 A Urine RBC 46 H Urine WBC > 182 H Urine Bacteria Many A 12/19/19 16:45 RDW Plt Count [place] % (Auto) [place] # (Auto) VBG Lactic Acid Carbon Dioxide 21 L BUN 27 H Creatinine 1.2 H Glucose 112 H Albumin 2.5 L Globulin 3.8 H Albumin/Globulin Ratio 0.7 L Urine Appearance Urine Protein Ur Leukocyte Esterase Urine RBC Urine WBC Urine Bacteria Meds: Medications Lorazepam (Ativan) 1 mg SL Q4HP PRN PRN Reason: Agitation Last Admin: 12/21/19 11:11 Dose: 1 mg Documented by: Morphine Sulfate (Morphine) 10 mg SL Q2HP PRN; Protocol PRN Reason: Per Pain Protocol Last Admin: 12/21/19 12:33 Dose: 10 mg Documented by: Ondansetron HCl (Zofran Odt) 4 mg SL Q4-6HP PRN PRN Reason: Nausea And Vomiting Scopolamine (Transderm-Scop) 1 patch TOPICAL Q72H [facility] Last Admin: 12/21/19 10:16 Dose: 1 patch Documented by: Sodium Chloride (Saline Flush) 10 ml IV Q8 [facility] Last Admin: 12/21/19 12:34 Dose: 10 ml Documented by: A/P Narrative A/P Narrative: 1. AMS 2. Sepsis/septic shock 2nd to UTI 3. UIT, urine culture on 10/01/2017 - Ecoli, sensitive to all antibiotics. 4. Dementia 5. Hx of A. fib on apixaban 6. Thrombocytopenia 7. TONY or TONY on CKD, creatinine 1.1 on 8. Chronic systolic and diastolic CHF, BNP 2285 9. Hx of HTN 10. Normal pressure hydrocephalus 12. CODE STATUS: comfort care only Plan: Comfort care only initiated today CM follow Time Spent With Patient Time: Total time spent is greater than 50% in coordination of care (as documented) at patient's floor/unit and/or counseling patient:
[2019-12-22] MEDS: 0.9 % SODIUM CHLORIDE 10 ML SYRINGE IV SCH ×3 (05:50→20:18)
--- NOTE | 2019-12-22 07:21 | Internal Med Progress Note ---
SUBJECTIVE Subjective Patient information: Note initiated : 12/22/19 at 7:21 am Service Date, if different from initiated Date: [] Patient: Maxi Encarnacion a 84 y/o F admitted on 12/19/19 for Altered Mental Status. Chief Complaint: [] Interval history: Ms. Encarnacion is a 84 year old F with a past medical history of dementia, history of atrial fibrillation on Eliquis, CKD, systolic and diastolic CHF, and hypertension who was brought to the ED from a retirement due to AMS. Patient is awake but does not answer any questions. As per chart, her normal baseline is screaming and yelling. But she was found to be nonverbal at the facility. In the ER, CT of the head showed Findings suspicious for normal pressure hydrocephalus superimposed upon moderate atrophy. Urinalysis compatible with UTI and 1 dose of ceftriaxone added to liter normal saline were given in the ER. 12/19 Pt's mental status improving. She keeps screaming and yelling which is her baseline. HR 57 - 75 Her told RN this morning he would like to change her code to DNR/DNI today and continue current treatment today. He might pursue comfort care tomorrow. 12/20 RN Isabel and I updated pt's condition to Marty Encarnacion ([id number]) who decided to pursue comfort care only. She will be on pain meds, ativan for anxiety, zofran for n/v, etc. Stop all other meds which are not related to comfort care. Mr. Marty Encarnacion fully understood pain med and ativan can suppress respiration but the goal is to keep her comfortable. He would like to start comfort care now. 12/21 Patient nonverbal. Minimally responsive. Occasionally moans but does not appear to be discomfort issue. Unable to gather review of systems given patient nonverbal Constitutional Vitals: Vital Signs Temp Pulse Resp BP Pulse Ox 97.3 F 83 6 L 87/53 80 L 12/21/19 20:00 12/21/19 20:00 12/22/19 00:24 12/21/19 20:00 12/21/19 20:00 Period Temp Pulse Resp BP Sys/Chicas Pulse Ox Last 24 Hr 97.3 F-99.5 F 73-83 6-18 87-101/48-53 80-96 Intake and Output 12/21/19 12/22/19 12/22/19 21:59 05:59 13:59 Output Total 150 150 Balance -150 -150 Intake & Output: Intake & Output 12/21/19 12/22/19 12/22/19 21:59 05:59 13:59 Output Total 150 150 Balance -150 -150 Output: Urine Catheter Amount 150 150 Other: Urine Appearance Cloudy Cloudy Purulent Purulent Urine Color Bright Yellow Haskell Urine Odor Strong Exam: General: sleeping, No acute Distress Eyes/N/T: Head/Neck: neck supple, CV: RRR, No murmurs, Pulm: Clear b/l, no wheezing/rhonchi/rales Abd: soft, nontender, +BS x4 Ext: no clubbing/cyanosis/edema Neuro: moves all extremities, Skin: warm/dry OBJ DATA Labs CBC & Chem 7: 12/19/19 18:00 12/19/19 16:45 Labs: Abnormal Lab Results 12/19/19 12/19/19 12/19/19 18:00 17:38 16:45 RDW 15.4 H Plt Count 112 L [place] % (Auto) 14.8 H [place] # (Auto) 1.35 H VBG Lactic Acid 2.3 H Carbon Dioxide BUN Creatinine Glucose Albumin Globulin Albumin/Globulin Ratio Urine Appearance Turbid A Urine Protein 100 A Ur Leukocyte Esterase 250 A Urine RBC 46 H Urine WBC > 182 H Urine Bacteria Many A 12/19/19 16:45 RDW Plt Count Cole % (Auto) Cole # (Auto) VBG Lactic Acid Carbon Dioxide 21 L BUN 27 H Creatinine 1.2 H Glucose 112 H Albumin 2.5 L Globulin 3.8 H Albumin/Globulin Ratio 0.7 L Urine Appearance Urine Protein Ur Leukocyte Esterase Urine RBC Urine WBC Urine Bacteria Meds: Medications Lorazepam (Ativan) 1 mg SL Q4HP PRN PRN Reason: Agitation Last Admin: 12/21/19 11:11 Dose: 1 mg Documented by: Morphine Sulfate (Morphine) 10 mg SL Q2HP PRN; Protocol PRN Reason: Per Pain Protocol Last Admin: 12/21/19 12:33 Dose: 10 mg Documented by: Ondansetron HCl (Zofran Odt) 4 mg SL Q4-6HP PRN PRN Reason: Nausea And Vomiting Scopolamine (Transderm-Scop) 1 patch TOPICAL Q72H [facility] Last Admin: 12/21/19 10:16 Dose: 1 patch Documented by: Sodium Chloride (Saline Flush) 10 ml IV Q8 [facility] Last Admin: 12/22/19 05:50 Dose: Not Given Documented by: A/P Narrative A/P Narrative: A: *AMS: *Sepsis/septic shock 2nd to UTI *UTI *Dementia *Hx of A. fib on apixaban *Thrombocytopenia *TONY or TONY on CKD, creatinine 1.1 on *Chronic systolic and diastolic CHF, BNP 2285 *Hx of HTN *Normal pressure hydrocephalus P: -comfort care only -pt and family support Time Spent With Patient Time: Total time spent is greater than 50% in coordination of care (as documented) at patient's floor/unit and/or counseling patient:
[2019-12-22] MEDS: LORazepam 1 MG TABLET SL PRN (07:43)
--- NOTE | 2019-12-22 10:15 | Discharge Summary ---
Discharge Provider Provider Patient information: Note initiated : 12/22/19 at 10:14 am Service Date, if different from initiated Date: [] Patient: Maxi Encarnacion a 84 y/o F admitted on 12/19/19 for Altered Mental Status. Chief Complaint: [] Date of admission: 12/19/19 22:57 Discharge date: 12/23/19 Primary care physician: [facility] Consults: 12/20/19 08:03 Consult to Physician [CONS] Routine Comment: late order Consulting Provider: [place] Reason For Exam: Physician to Consult Discharge Meds Discharge Medications Home Medications docusate sodium [Colace] 100 mg PO DAILYP PRN 09/17/19 [History Confirmed 12/20/19 Last Taken Unknown] lactase [Lactaid] See Rx Instructions .ROUTE .COMPLEX PRN 09/17/19 [History Confirmed 12/20/19 Last Taken Unknown] hyoscyamine sulfate [Levsin] 0.25 mg PO QID PRN #1 tab 12/22/19 [Rx Last Taken Unknown] lorazepam 1 - 2 mg SUBLINGUAL Q2HP PRN #30 ml 12/22/19 [Rx Last Taken Unknown] morphine 10 mg PO Q4H PRN #100 ml 12/22/19 [Rx Last Taken Unknown] ondansetron 4 mg PO Q4HP PRN #30 tab 12/22/19 [Rx Last Taken Unknown] COURSE Hospital Course Hospital course: Ms. Encarnacion is a 84 year old F with a past medical history of dementia, history of atrial fibrillation on Eliquis, CKD, systolic and diastolic CHF, and hypertension who was brought to the ED from a [facility] due to AMS. Patient is awake but does not answer any questions. As per chart, her normal baseline is screaming and yelling. But she was found to be nonverbal at the facility. In the ER, CT of the head showed Findings suspicious for normal pressure hydrocephalus superimposed upon moderate atrophy. Urinalysis compatible with UTI and 1 dose of ceftriaxone added to liter normal saline were given in the ER. 12/19 Pt's mental status improving. She keeps screaming and yelling which is her baseline. HR 57 - 75 Her told RN this morning he would like to change her code to DNR/DNI today and continue current treatment today. He might pursue comfort care tomorrow. 12/20 RN Isabel and I updated pt's condition to Marty Encarnacion ([id number]) who decided to pursue comfort care only. She will be on pain meds, ativan for anxiety, zofran for n/v, etc. Stop all other meds which are not related to comfort care. Mr. Marty Encarnacion fully understood pain med and ativan can suppress respiration but the goal is to keep her comfortable. He would like to start comfort care now. 12/21 Patient nonverbal. Minimally responsive. Occasionally moans but does not appear to be discomfort issue. 12/22 No change. Patient discharged to [facility] hosp[facility]. A: *AMS: *Sepsis/septic shock 2nd to UTI *UTI *Dementia *Hx of A. fib on apixaban *Thrombocytopenia *TONY or TONY on CKD, creatinine 1.1 on *Chronic systolic and diastolic CHF, BNP 2285 *Hx of HTN *Normal pressure hydrocephalus Discharge diagnosis: Encephalopathy sepsis UTI dementia Secondary discharge diagnosis: History of A. fib thrombocytopenia acute on chronic kidney disease chronic systolic diastolic heart failure hypertension normal pressure hydrocephalus Time Spent with Patient Time attestation: Total time spent providing and/or coordinating discharge services: Time spent: Greater than 30 minutes EXAM Constitutional Vitals: Temp Pulse Resp BP Pulse Ox 97.3 F 83 6 L 87/53 80 L 12/21/19 20:00 12/21/19 20:00 12/22/19 00:24 12/21/19 20:00 12/21/19 20:00 Discharge Data Data Completed and Pending Labs on day of discharge: Preliminary micro results at discharge 12/21/19 07:49 Blood Culture - Preliminary Blood 12/21/19 07:39 Blood Culture - Preliminary Blood 12/19/19 22:55 Blood Culture - Preliminary Blood 12/19/19 22:40 Blood Culture - Preliminary Blood Discharge Plan Patient/Caregiver Discharge Instructions Activity: increase activity as tolerated Diet: Regular Diet Prescriptions: New morphine 20 mg/5 mL (4 mg/mL) solution 10 mg PO Q4H PRN (Reason: dyspnea and pain) Qty: 100 RF: 0 lorazepam 2 mg/mL concentrate 1 - 2 mg SUBLINGUAL Q2HP PRN (Reason: agitation) Qty: 30 RF: 0 hyoscyamine sulfate [Levsin] 0.125 mg tablet 0.25 mg PO QID PRN (Reason: secretions) Qty: 1 RF: 0 ondansetron 4 mg tablet,disintegrating 4 mg PO Q4HP PRN (Reason: nausea and vomiting) Qty: 30 RF: 0 Continued lactase [Lactaid] 3,000 unit Tablet See Rx Instructions .ROUTE .COMPLEX PRN (Reason: Lactose Intolerance) RF: 0 docusate sodium [Colace] 100 mg Capsule 100 mg PO DAILYP PRN (Reason: Constipation) RF: 0 Discontinued Eliquis 2.5 mg tablet 2.5 mg PO BID Qty: 60 RF: 11 metoprolol succinate 25 mg tablet extended release 24 hr 25 mg PO QDAY Qty: 30 RF: 11 acetaminophen [Tylenol] 325 mg Tablet 650 mg PO TIDP PRN (Reason: Pain) RF: 0 lorazepam 0.5 mg tablet 0.5 mg PO Q6HP PRN (Reason: Anxiety) RF: 0 divalproex [Depakote] 125 mg Tablet,Delayed Release (Dr/Ec) 250 mg PO TID RF: 0 escitalopram oxalate 10 mg tablet 10 mg PO DAILY RF: 0 triamcinolone acetonide 0.1 % cream 1 applic TOPICAL BID PRN (Reason: Rash) RF: 0 gabapentin 100 mg capsule 200 mg PO QID RF: 0 loperamide 2 mg Capsule See Rx Instructions .ROUTE .COMPLEX PRN (Reason: Diarrhea) RF: 0 spironolactone 25 mg Tablet See Rx Instructions .ROUTE .COMPLEX RF: 0 hydrocodone-acetaminophen 5-325 mg Tablet 0.5 tab PO BIDP PRN (Reason: Pain) RF: 0 Follow Up Plan Follow up with: Sai Aponte ARNP [Primary Care Provider] - Patient Disposition: Hospice - Medical Facility Prognosis: Serious I certify that the patient requires SNF services: Yes Overall status at discharge: patient is not back to baseline Discharge Orders: Discharge Order (Routine); Ordered 12/23/19 Ordered By: Walter Lofton
[2019-12-22] MEDS: morphine 20 MG/ML ORAL.CONC SL PRN (11:18)
[2019-12-22] MEDS ORDERED: diphenhydrAMINE 50 MG/ML VIAL IV ONE ×2 (15:55→19:40)
[2019-12-22] MEDS ORDERED: LORazepam 1 MG TABLET SL PRN (15:59)
[2019-12-22] MEDS ORDERED: OLANZapine 10 MG VIAL IM ONE (16:00)
[2019-12-22] MEDS: LORazepam 2 MG/ML ORAL.SOL PO PRN (19:36)
[2019-12-22] MEDS ORDERED: LORazepam 2 MG/ML VIAL IV PRN (23:48)
[2019-12-22] MEDS ORDERED: morphine 2 MG/ML VIAL IV PRN (23:49)
[2019-12-23] MEDS ORDERED: LORazepam 2 MG/ML VIAL ONE
[2019-12-23] MEDS: morphine 20 MG/ML ORAL.CONC SL PRN ×2 (01:18→09:25)
[2019-12-23] MEDS: 0.9 % SODIUM CHLORIDE 10 ML SYRINGE IV SCH (06:41)
[2019-12-23] MEDS: LORazepam 2 MG/ML ORAL.SOL PO PRN (06:41)
== END 2019-12-23 10:00 | disposition hospice, inpatient (51) | DRG 871 ==
LOC: ED 14:45 → ICU 22:57
PROVIDERS: ADMIT Internal Medicine; ATTEND Internal Medicine